=== PATIENT | female | born 1935 | race Caucasian/White ===

== ENCOUNTER → 2023-04-26 13:12 | Outpatient (BNVA) | payer MEDICARE, OTHER, SELFPAY | PROVIDERS: Visit Provider Podiatrist Foot & Ankle Surgery | DX: L60.3 Nail dystrophy (principal); N18.9 Chronic kidney disease, unspecified; G62.9 Polyneuropathy, unspecified; E11.42 Type 2 diabetes mellitus with diabetic polyneuropathy | CPT/HCPCS: 11721; 99203 ==

== ENCOUNTER → 2023-06-03 13:47 | Outpatient (BNVA) | payer MEDICARE, OTHER, SELFPAY | PROVIDERS: Referring Provider Nurse Practitioner Family; Visit Provider Internal Medicine Cardiovascular Disease | DX: E11.22 Type 2 diabetes mellitus with diabetic chronic kidney disease (principal); N18.9 Chronic kidney disease, unspecified; J44.9 Chronic obstructive pulmonary disease, unspecified; G47.30 Sleep apnea, unspecified; F09 Unspecified mental disorder due to known physiological condition | CPT/HCPCS: 99204 ==

== ENCOUNTER → 2023-06-28 13:11 | Outpatient (BNVA) | payer SELFPAY | PROVIDERS: Visit Provider Podiatrist Foot & Ankle Surgery | DX: E11.42 Type 2 diabetes mellitus with diabetic polyneuropathy; M19.072 Primary osteoarthritis, left ankle and foot; L60.3 Nail dystrophy; E11.29 Type 2 diabetes mellitus with other diabetic kidney complication; N18.9 Chronic kidney disease, unspecified; G62.9 Polyneuropathy, unspecified; M10.9 Gout, unspecified | CPT/HCPCS: 73630 ==

== ENCOUNTER → 2023-08-02 14:11 | Outpatient (BNVA) | payer MEDICARE, OTHER, SELFPAY | PROVIDERS: PCP Family Medicine; Visit Provider Podiatrist Foot & Ankle Surgery | DX: L60.3 Nail dystrophy (principal); N18.9 Chronic kidney disease, unspecified; G62.9 Polyneuropathy, unspecified; M10.9 Gout, unspecified; E11.42 Type 2 diabetes mellitus with diabetic polyneuropathy; M19.92 Post-traumatic osteoarthritis, unspecified site | CPT/HCPCS: 11721 ==

== ENCOUNTER 2023-11-25 01:29 | Emergency (ER) | payer MEDICARE, OTHER, SELFPAY ==
[2023-11-25 01:31] VITALS: BP 144/55; PULSE 81; RESP 18; TEMP 36.7; O2SAT 85; BMI 39.6
--- NOTE | 2023-11-25 01:35 | CTR_ITS ---
PROCEDURE INFORMATION: Exam: CT Head Without Contrast Exam date and time: 11/25/2023 1:52 AM Age: 88 years old Clinical indication: Stroke-like symptoms; Altered mental status/memory loss and speech disturbance; Additional info: Possible stroke TECHNIQUE: Imaging protocol: Computed tomography of the head without contrast. Radiation optimization: All CT scans at this facility use at least one of these dose optimization techniques: automated exposure control; mA and/or kV adjustment per patient size (includes targeted exams where dose is matched to clinical indication); or iterative reconstruction. Other technique: STROKE PROTOCOL was implemented. COMPARISON: No relevant prior studies available. RADIATION DOSE METRICS: Total DLP (mGy-cm): 2347.78 FINDINGS: Brain: No acute intracranial hemorrhage or mass effect. There is decreased attenuation in the periventricular white matter, likely from microvascular disease. There are several old lacunar infarcts in the right basal ganglia region. No definite acute infarct by CT. MRI would be more sensitive/specific for detection, as clinically directed. Cerebral ventricles: Ventricle size is normal for age. Paranasal sinuses: Included paranasal sinuses are essentially clear. Mastoid air cells: No significant acute finding. Bones: No definite acute skull fracture. Soft tissues: No significant acute finding. Vasculature: Vascular calcifications in the internal carotid and vertebral basilar systems. CT/CT head wo con* [id number] IMPRESSION: 1. No acute intracranial hemorrhage or mass effect. 2. Changes of microvascular disease, and several old lacunar infarcts. 3. No definite acute infarct by CT, see above. 4. Other findings discussed above. ASSESSMENT: ASPECTS ([place] Stroke Program Early CT Score) is 10.
--- NOTE | 2023-11-25 01:40 | ECG_ITS ---
[facility] Test Date: 2023-11-25 Pat Name: Nakia Fung Department: Room: Gender: Female [employer]or: : 1935 Requested By: Renetta Archer Order Number: [id number] Rainer MD: MARGARITA LEGGETT Measurements Intervals [place] Rate: 64 P: 0 HI: 0 QRS: -7 QRSD: 77 T: 16 QT: 400 QTc: 415 Interpretive Statements Sinus Rythm LOW QRS VOLTAGE IN PRECORDIAL LEADS [QRS DEFLECTION < 1.0 mV IN CHEST LEADS] POSSIBLE ANTERIOR MYOCARDIAL INFARCTION , PROBABLY OLD [30 ms Q WAVE IN V3/V4, OR R < 0.2 mV IN V4] ABNORMAL RHYTHM ECG No previous ECG available for comparison Electronically Signed On 11-27-2023 18:23:11 CDT by MARGARITA LEGGETT [email or web address]
[2023-11-25 01:44] VITALS: BP 144/55; PULSE 73; RESP 16; O2SAT 93
[2023-11-25 01:46] LABS: Basophils % 0.1 %; Eosinophils # 0.6 10^3/uL (0.0-0.8); Eosinophils % 6.9 %; Lymphocytes # 2.2 10^3/uL (0.8-4.8); Mean Corpuscular HGB Conc 30.8 g/dL (30-55); Mean Corpuscular Hemoglobin 27.8 pg (27-33); Mean Corpuscular Volume 90.5 fl (85-98); Monocytes # 0.8 10^3/uL (0.2-0.9); Monocytes % 8.8 %; Neutrophils # 5.11 10^3/uL (1.8-7.7); Nucleated Red Blood Cells % 0 %; Platelet Count 172 10^3/cmm (157-399); Red Blood Count 4.31 10^6/uL (3.85-5.65); Red Cell Distribution Width 13.1 % (12.1-15.1); White Blood Count 8.67 10^3/uL (3.29-11.43)
--- NOTE | 2023-11-25 01:59 | ED_ITS ---
HPI - Neuro Symptoms/Deficit 2 General: Chief Complaint: Neuro Symptoms/Deficit Stated Complaint: ams, TIA EPISODE Time Seen by Provider: 11/25/23 01:35 History of Present Illness: 88-year-old female with a history of dem entia who presents emergency room by air ambulance after having neurologic episodes this evening. Apparently she took a CBD gummy. She has not taken these many times before. She had several episodes where she would just go completely limp and her face would melt . The symptoms have resolved and she is back to her normal self. Blood pressure is normal. Heart rate is normal. Related Data Home Medications Medication Instructions Recorded Confirmed quetiapine 25 mg tablet 25 mg PO DAILY 04/26/23 08/02/23 albuterol sulfate 90 mcg/actuation 2 puff inhalation Q4H PRN 06/03/23 08/02/23 aerosol inhaler aspirin 81 mg tablet,delayed 81 mg PO DAILY 06/03/23 08/02/23 release (Ecotrin Low Strength) atorvastatin 20 mg tablet 20 mg PO DAILY 06/03/23 08/02/23 clopidogrel 75 mg tablet (Plavix) 75 mg PO DAILY 06/03/23 08/02/23 docusate sodium 100 mg capsule 100 mg PO BID PRN 06/03/23 08/02/23 (Colace) donepezil 10 mg tablet (Aricept) 10 mg PO DAILY 06/03/23 08/02/23 furosemide 20 mg tablet (Lasix) 20 mg PO DAILY 06/03/23 08/02/23 hydroxyzine HCl 25 mg tablet 25 mg PO BID PRN 06/03/23 08/02/23 levothyroxine 112 mcg capsule 112 mcg PO DAILY 06/03/23 08/02/23 melatonin 3 mg tablet 3 mg PO DAILY PRN 06/03/23 08/02/23 memantine 10 mg tablet 10 mg PO BID 06/03/23 08/02/23 nystatin 100,000 unit/gram topical 1 applic topical BID 06/03/23 08/02/23 powder polyethylene glycol 3350 17 gram 17 g PO DAILY 06/03/23 08/02/23 oral powder packet (Miralax) propranolol 10 mg tablet 10 mg PO BID 06/03/23 08/02/23 spironolactone 25 mg tablet 12.5 mg PO DAILY 06/03/23 08/02/23 umeclidinium 62.5 mcg/actuation 1 inh inhalation DAILY 06/03/23 08/02/23 blister powder for inhalation (Incruse Ellipta) Previous Rx's Medication Instructions Recorded L foot AFO #1 06/28/23 diabetic shoes with 3 custom #1 06/28/23 molded inserts wheelchair with extra large wheels #1 ea 07/19/23 diabeic shoes with 3 inserts #1 07/20/23 wheelchair w/extra large wheels #1 ea 08/05/23 for in home use Allergies Allergy/AdvReac Type Severity Reaction Status Date / Time tomato Allergy Unknown Unknown Verified 11/25/23 01:44 ceftriaxone Allergy ALGY-Hives Verified 11/25/23 01:44 Review of Systems 2 Narrative: Constitutional symptoms: Negative except as documented in HPI. Skin symptoms: Negative except as documented in HPI. Eye symptoms: Negative except as documented in HPI. ENMT symptoms: Negative except as documented in HPI. Respiratory symptoms: Negative except as documented in HPI. Cardiovascular symptoms: Negative except as documented in HPI. Gastrointestinal symptoms: Negative except as documented in HPI. Genitourinary symptoms: Negative except as documented in HPI. Musculoskeletal symptoms: Negative except as documented in HPI. Neurologic symptoms: Negative except as documented in HPI. Psychiatric symptoms: Negative except as documented in HPI. Endocrine symptoms: Negative except as documented in HPI. PFSH ED 2 PFSH: Medical History Cognitive dysfunction Sleep apnea COPD (chronic obstructive pulmonary disease) Physical Exam 2 Narrative: EXAM NARRATIVE: General: Alert, no acute distress. Skin: Warm, dry. Head: Normocephalic, atraumatic. Neck: Supple, trachea midline. Eye: Extraocular movements are intact. Ears, nose, mouth and throat: mucosa moist. Cardiovascular: Regular, Normal peripheral perfusion. Respiratory: Lungs are clear to auscultation, respirations are non-labored, breath sounds are equal, Symmetrical chest wall expansion. Gastrointestinal: Soft, Nontender, Non distended Musculoskeletal: Normal ROM, no deformity. Neurological: Alert and oriented, No focal neurological deficit observed. Psychiatric: Cooperative, appropriate mood & affect. Course 2 Vital Signs: Vital signs: Vital Signs Temperature 98.1 F 11/25/23 01:31 Pulse Rate 69 11/25/23 02:14 Respiratory Rate 15 11/25/23 02:14 Blood Pressure 131/75 11/25/23 02:14 Pulse Oximetry 96 11/25/23 02:14 Oxygen Delivery Me thod Nasal Cannula 11/25/23 02:14 Oxygen Flow Rate 4 11/25/23 01:44 MDM - Neuro Symptoms/Deficit Medical Decision Making Medical decision making: Differential diagnosis for patient with focal neurologic deficit(s) includes but not limited to and based on the above HPI, review of systems and physical exam: ischemic stroke, hemorrhagic stroke and embolic stroke secondary to atrial fibrillation), TIA, Barron's palsey, metabolic encephalopathy with previous stroke. Orders placed to evaluate differential diagnosis based on the above differential, HPI and physical exam Lab Review: Laboratory results were reviewed and interpreted by myself the emergency room physician. No leukocytosis. No anemia. BUN and creatinine are 49 and 1.3. I do not have any previous labs to compare. CT of the head without contrast: No hemorrhage or mass effect. She has senescent changes. No signs of acute infarct. This was reviewed and interpreted by myself the emergency room physician. I also reviewed the radiology report. Urinalysis is negative for infection. I reviewed the patient's medical record. Reexamination: Patient remained stable. No increased work of breathing. No altered mental status. No focal motor deficits. Assessment and plan: Possible medication reaction. - Discharged home - Discussed findings and plan with patient. Answered any questions. - All laboratory values were reviewed and interpreted personally by myself, the ER physician - All imaging was reviewed and interpreted personally by myself, the ER physician. - Evaluation and treatment of this problem were appropriate in the emergency setting Lab Data 11/25/23 01:40 11/25/23 01:[address] 11/25/23 01:35 IMPRESSION: 1. No acute intracranial hemorrhage or mass effect. 2. Changes of microvascular disease, and several old lacunar infarcts. 3. No definite acute infarct by CT, see above. 4. Other findings discussed above. ASSESSMENT: ASPECTS ([place] Stroke Program Early CT Score) is 10. Laboratory Results WBC 8.67 10^3/uL (3.29-11.43) 11/25/23 01:40 RBC 4.31 10^6/uL (3.85-5.65) 11/25/23 01:40 Hgb 12.00 g/dL (11.27-16.99) 11/25/23 01:40 Hct 39.0 % (36-47) 11/25/23 01:40 MCV 90.5 fl (85-98) 11/25/23 01:40 MCH 27.8 pg (27-33) 11/25/23 01:40 MCHC 30.8 g/dL (30-55) 11/25/23 01:40 RDW 13.1 % (12.1-15.1) 11/25/23 01:40 Plt Count 172 10^3/cmm (157-399) 11/25/23 01:40 MPV 10.0 fL (7.4-10.4) 11/25/23 01:40 Neut % (Auto) 59.0 % 11/25/23 01:40 Lymph % (Auto) 25.0 % 11/25/23 01:40 [facility] % (Auto) 8.8 % 11/25/23 01:40 Eos % (Auto) 6.9 % 11/25/23 01:40 Baso % (Auto) 0.1 % 11/25/23 01:40 Neut # (Auto) 5.11 10^3/uL (1.8-7.7) 11/25/23 01:40 Lymph # (Auto) 2.2 10^3/uL (0.8-4.8) 11/25/23 01:40 [facility] # (Auto) 0.8 10^3/uL (0.2-0.9) 11/25/23 01:40 Eos # (Auto) 0.6 10^3/uL (0.0-0.8) 11/25/23 01:40 Baso # (Auto) 0.0 10^3/uL (0.0-0.1) 11/25/23 01:40 Nucleated RBC % (auto) 0 % 11/25/23 01:40 Nucleated RBCs # 0.0 /100WBC 11/25/23 01:40 Sodium 140 mmol/L (136-145) 11/25/23 01:40 Potassium 4.6 mmol/L (3.5-5.1) 11/25/23 01:40 Chloride 107 mmol/L (98-107) 11/25/23 01:40 Carbon Dioxide 25 mmol/L (22-29) 11/25/23 01:40 Anion Gap 12.6 (5-19) 11/25/23 01:40 BUN 49 mg/dL (8-23) H 11/25/23 01:40 Creatinine 1.3 mg/dL (0.5-0.9) H 11/25/23 01:40 GFR Calculation Not Reportable 11/25/23 01:40 Glucose 115 mg/dL (65-115) 11/25/23 01:40 Calculated Osmolality 304 mOsm/kg (285-295) H 11/25/23 01:40 Calcium 8.1 mg/dL (8.5-10.5) L 11/25/23 01:40 Total Bilirubin 0.2 mg/dL (0.15-1.2) 11/25/23 01:40 AST 14 U/L (0-32) 11/25/23 01:40 ALT 8 U/L (0-33) 11/25/23 01:40 Alkaline Phosphatase 128 U/L (35-105) H 11/25/23 01:40 Total Protein 6.0 g/dL (6.6-8.7) L 11/25/23 01:40 Albumin 3.6 g/dL (3.5-5.2) 11/25/23 01:40 Globulin 2.4 g/dL (1.3-4.6) 11/25/23 01:40 Urine Color Yellow (Yellow) 11/25/23 02:08 Urine Appearance Clear (CLEAR) 11/25/23 02:08 Urine pH 5.0 (5-7) 11/25/23 02:08 Ur Specific [place] 1.019 (1.005-1.030) 11/25/23 02:08 Urine Protein Negative (Negative) 11/25/23 02:08 Urine Glucose (UA) Negative (Normal) 11/25/23 02:08 Urine Ketones Trace (Negative) 11/25/23 02:08 Urine Blood Negative (Negative) 11/25/23 02:08 Urine Nitrate Negative (Negative) 11/25/23 02:08 Urine Bilirubin Negative (Negative) 11/25/23 02:08 Urine Urobilinogen 1.0 mg/dL (Negative) 11/25/23 02:08 Ur Leukocyte Esterase Negative (Negative) 11/25/23 02:08 Amorphous Sediment Not Reportable 11/25/23 02:08 All radiology interpretation(s) finalized by discharge Discharge Plan Discharge Patient Disposition: Home Clinical Impression: Encephalopathy, Medication reaction Condition: Stable Prescriptions: No Action levothyroxine 112 mcg capsule 112 mcg PO DAILY albuterol sulfate 90 mcg/actuation HFA aerosol inhaler 2 puff inhalation Q4H PRN aspirin [Ecotrin Low Strength] 81 mg tablet,delayed release (DR/EC) 81 mg PO DAILY atorvastatin 20 mg tablet 20 mg PO DAILY clopidogrel [Plavix] 75 mg tablet 75 mg PO DAILY docusate sodium [Colace] 100 mg capsule 100 mg PO BID PRN donepezil [Aricept] 10 mg tablet 10 mg PO DAILY furosemide [Lasix] 20 mg tablet 20 mg PO DAILY hydroxyzine HCl 25 mg tablet 25 mg PO BID PRN melatonin 3 mg tablet 3 mg PO DAILY PRN memantine 10 mg tablet 10 mg PO BID nystatin 100,000 unit/gram powder 1 applic topical BID polyethylene glycol 3350 [Miralax] 17 gram powder in packet 17 g PO DAILY propranolol 10 mg tablet 10 mg PO BID Incruse Ellipta 62.5 mcg/actuation blister with device 1 inh inhalation DAILY spironolactone 25 mg tablet 12.5 mg PO DAILY (DME) diabetic shoes with 3 custom molded inserts See Rx Instructions .Route .MEDSUPPLY Qty: 1 0RF Rx Instructions: As directed to the shoe guys (DME) L foot AFO See Rx Instructions .Route .MEDSUPPLY Qty: 1 0RF Rx Instructions: As directed to the shoe guys quetiapine 25 mg tablet 25 mg PO DAILY (DME) wheelchair with extra large wheels See Rx Instructions .Route .MEDSUPPLY Qty: 1 0RF Rx Instructions: As directed to HOME (DME) diabeic shoes with 3 inserts See Rx Instructions .Route .MEDSUPPLY Qty: 1 0RF Rx Instructions: As directed HOME (DME) wheelchair w/extra large wheels for in home use See Rx Instructions .Route .MEDSUPPLY Qty: 1 0RF Rx Instructions: As directed to HOME / duration of need 90 days. Anything beyond that needs to be approved through primary care. Discharge Orders: Discharge ED (Routine); Ordered 11/25/23 Ordered By: Renetta Kramer Referrals: Ignacio Robles [Primary Care Provider] - Discharge Diet: Usual diet Discharge Activity: Increase activity as tolerated Patient Instructions: Opioid Safety, Pain Management Activity Restrictions/Additional Instructions: Please take a full-strength aspirin daily and discuss this event with your primary care provider. Symptoms were not typical for any sort of stroke but TIA is not out of the question. Thank you for choosing [facility] for your healthcare needs today. Please realize this is an emergency room and that we are providing you with a medical screening exam and this may not be complete and all inclusive of all the testing and or work up that you may need to determine your ailment or severity of your illness. You have been screened and evaluated and felt safe for discharge. Health conditions do change or evolve sometimes and as such it is important that you follow up with your Primary Doctor to be re checked, 3-5 days is a general good time frame for follow up. You are always welcome to return to the ED for re assessment if your symptoms are worsening or you have new concerns Coding Level of Care Code ED Golf Instructor for Stefanie Clemens
[2023-11-25 02:06] LABS: Alanine Aminotransferase 8 U/L (0-33); Albumin Level 3.6 g/dL (3.5-5.2); Alkaline Phosphatase 128 U/L (35-105); Aspartate Amino Transferase 14 U/L (0-32); Blood Urea Nitrogen 49 mg/dL (8-23); Calcium 8.1 mg/dL (8.5-10.5); Carbon Dioxide 25 mmol/L (22-29); Chloride 107 mmol/L (98-107); Creatinine Clr Calc Pharmacy 31.4492; Globulin 2.4 g/dL (1.3-4.6); Glucose 115 mg/dL (65-115); Osmolality Calculated 304 mOsm/kg (285-295); Sodium 140 mmol/L (136-145); Total Bilirubin 0.2 mg/dL (0.15-1.2)
[2023-11-25 02:14] VITALS: BP 131/75; PULSE 69; RESP 15; O2SAT 96
[2023-11-25 02:21] LABS: Anion Gap 12.6 (5-19); Potassium 4.6 mmol/L (3.5-5.1)
[2023-11-25 02:25] LABS: Bilirubin Urine Negative (Negative); Blood Urine Negative (Negative); Glucose Urine UA Negative (Normal); Ketones Urine Trace (Negative); Leukocyte Esterase Urine Negative (Negative); Nitrate Urine Negative (Negative); Protein Urine Negative (Negative); Specific Gravity, Urine 1.019 (1.005-1.030); Urine Appearance Clear (CLEAR); Urine Color Yellow (Yellow)
[2023-11-25 02:30] LABS: Bacteria Urine None Seen /hpf; Hyaline Casts Urine 18.18 /lpf; RBC Urine 0-2 /hpf (0-2); Squamous Epithelial Cell Urine 0-5 /hpf (0-5); WBC Urine 0-5 /hpf (0-5)
[2023-11-25 02:43] LABS: Partial Thromboplastin Time 26.9 SECONDS (23.9-36.7)
[2023-11-25 02:46] LABS: Add Urine Culture? No
[2023-11-25 03:34] VITALS: BP 158/90; PULSE 66; RESP 14; O2SAT 97
== END 2023-11-25 03:10 | disposition home or self-care (01) ==
PROVIDERS: Emergency Provider Emergency Medicine; PCP Family Medicine
DX: G92.8 Other toxic encephalopathy (principal); T40.715A Adverse effect of cannabis, initial encounter; J44.9 Chronic obstructive pulmonary disease, unspecified; Z79.02 Long term (current) use of antithrombotics/antiplatelets; Z79.82 Long term (current) use of aspirin
CPT/HCPCS: 70450; 80053; 81001; 85025; 85610; 85730; 93005; 99284

== ENCOUNTER 2023-11-27 13:32 | Emergency (ER) | payer MEDICARE, OTHER, SELFPAY ==
[2023-11-27] VITALS (8 sets, daily range): BP systolic 122–177; BP diastolic 43–91; PULSE 58–71; RESP 16–18; TEMP 36.8; O2SAT 95–100
--- NOTE | 2023-11-27 13:44 | XRR_ITS ---
PROCEDURE INFORMATION: Exam: XR Chest Exam date and time: 11/27/2023 2:04 PM Age: 88 years old Clinical indication: Patient HX: Weakness; Syncopal episodes; HX stroke x 15yr ago TECHNIQUE: Imaging protocol: Radiologic exam of the chest. Views: 1 view. COMPARISON: No relevant prior studies available. FINDINGS: Lungs: Bibasilar pulmonary infiltrates, right greater than left. Pleural spaces: Unremarkable. No pleural effusion. No pneumothorax. Heart/Mediastinum: See Vasculature finding. Vasculature: Mild cardiomegaly and uncoiling of the thoracic aorta. Bones/joints: Degenerative changes of the shoulders, left greater than right. XR/XR chest 1V portable [id number] IMPRESSION: Bilateral lower lobe infiltrates.
--- NOTE | 2023-11-27 13:45 | USR_ITS ---
PROCEDURE INFORMATION: Exam: US Duplex Lower Extremity Veins, Bilateral Exam date and time: 11/27/2023 2:46 PM Age: 88 years old Clinical indication: Edema, localized; Lower extremity, bilateral; Additional info: Bilateral lower extremity pain and swelling. TECHNIQUE: Imaging protocol: Real-time duplex ultrasound of the bilateral extremities with 2-D fonseca scale, color Doppler flow and spectral waveform analysis including responses to compression and other maneuvers (when performed) with image documentation. Complete exam focused on the lower extremity veins. COMPARISON: US CV ankle brachial index [id number] 06/23/2023 1:25 PM FINDINGS: Right deep veins: Unremarkable. The common femoral, femoral, proximal profunda femoral and popliteal veins are patent without thrombus. Normal Doppler waveforms. Normal compressibility and/or augmentation response. Left deep veins: Unremarkable. The common femoral, femoral, proximal profunda femoral and popliteal veins are patent without thrombus. Normal Doppler waveforms. Normal compressibility and/or augmentation response. Superficial veins: Greater saphenous veins at the saphenofemoral junctions are patent bilaterally without thrombus. Soft tissues: Unremarkable. US/[place] [id number] IMPRESSION: No evidence of deep vein thrombosis.
--- NOTE | 2023-11-27 13:45 | ED_ITS ---
HPI - Extremity Problem 2 General: Chief complaint: Extremity Problem,Nontraumatic Stated complaint: swollen leg Time Seen by Provider: 11/27/23 13:42 History of Present Illness: 88-year-old female who presents emergenc y room with pain and swelling in her left leg. Her primary told her to come here to rule out DVT. No obvious redness. Some mild edema. No chest pain. No shortness of breath. No altered mental status. Related Data Home Medications Medication Instructions Recorded Confirmed quetiapine 25 mg tablet 25 mg PO DAILY 04/26/23 08/02/23 albuterol sulfate 90 mcg/actuation 2 puff inhalation Q4H PRN 06/03/23 08/02/23 aerosol inhaler aspirin 81 mg tablet,delayed 81 mg PO DAILY 06/03/23 08/02/23 release (Ecotrin Low Strength) atorvastatin 20 mg tablet 20 mg PO DAILY 06/03/23 08/02/23 clopidogrel 75 mg tablet (Plavix) 75 mg PO DAILY 06/03/23 08/02/23 docusate sodium 100 mg capsule 100 mg PO BID PRN 06/03/23 08/02/23 (Colace) donepezil 10 mg tablet (Aricept) 10 mg PO DAILY 06/03/23 08/02/23 furosemide 20 mg tablet (Lasix) 20 mg PO DAILY 06/03/23 08/02/23 hydroxyzine HCl 25 mg tablet 25 mg PO BID PRN 06/03/23 08/02/23 levothyroxine 112 mcg capsule 112 mcg PO DAILY 06/03/23 08/02/23 melatonin 3 mg tablet 3 mg PO DAILY PRN 06/03/23 08/02/23 memantine 10 mg tablet 10 mg PO BID 06/03/23 08/02/23 nystatin 100,000 unit/gram topical 1 applic topical BID 06/03/23 08/02/23 powder polyethylene glycol 3350 17 gram 17 g PO DAILY 06/03/23 08/02/23 oral powder packet (Miralax) propranolol 10 mg tablet 10 mg PO BID 06/03/23 08/02/23 spironolactone 25 mg tablet 12.5 mg PO DAILY 06/03/23 08/02/23 umeclidinium 62.5 mcg/actuation 1 inh inhalation DAILY 06/03/23 08/02/23 blister powder for inhalation (Incruse Ellipta) Previous Rx's Medication Instructions Recorded L foot AFO #1 ea 06/28/23 diabetic shoes with 3 custom #1 ea 06/28/23 molded inserts wheelchair with extra large wheels #1 ea 07/19/23 diabeic shoes with 3 inserts #1 ea 07/20/23 wheelchair w/extra large wheels #1 ea 08/05/23 for in home use Allergies Allergy/AdvReac Type Severity Reaction Status Date / Time tomato Allergy Unknown Unknown Verified 11/25/23 01:44 ceftriaxone Allergy ALGY-Hives Verified 11/25/23 01:44 Review of Systems 2 Narrative: Constitutional symptoms: Negative except as documented in HPI. Skin symptoms: Negative except as documented in HPI. Eye symptoms: Negative except as documented in HPI. ENMT symptoms: Negative except as documented in HPI. Respiratory symptoms: Negative except as documented in HPI. Cardiovascular symptoms: Negative except as documented in HPI. Gastrointestinal symptoms: Negative except as documented in HPI. Genitourinary symptoms: Negative except as documented in HPI. Musculoskeletal symptoms: Negative except as documented in HPI. Neurologic symptoms: Negative except as documented in HPI. Psychiatric symptoms: Negative except as documented in HPI. Endocrine symptoms: Negative except as documented in HPI. PFSH ED 2 PFSH: Medical History Cognitive dysfunction Sleep apnea COPD (chronic obstructive pulmonary disease) Physical Exam 2 Narrative: EXAM NARRATIVE: General: Alert, no acute distress. Skin: Warm, dry. Head: Normocephalic, atraumatic. Neck: Supple, trachea midline. Eye: Extraocular movements are intact. Ears, nose, mouth and throat: mucosa moist. Cardiovascular: Regular, Normal peripheral perfusion. Respiratory: Lungs are clear to auscultation, respirations are non-labored, breath sounds are equal, Symmetrical chest wall expansion. Gastrointestinal: Soft, Nontender, Non distended Musculoskeletal: Normal ROM, no deformity. Neurological: Alert and oriented, No focal neurological deficit observed. Psychiatric: Cooperative, appropriate mood & affect. Course 2 Vital Signs: Vital signs: Vital Signs Temperature 98.3 F 11/27/23 13:37 Pulse Rate 64 11/27/23 18:00 Respiratory Rate 18 11/27/23 18:00 Blood Pressure 128/59 11/27/23 18:00 Pulse Oximetry 95 11/27/23 18:00 Oxygen Delivery Me thod Room Air 11/27/23 18:00 Oxygen Flow Rate 3 11/27/23 13:37 MDM - Extremity (Nontraumatic) Medical Decision Making Ultrasound of the lower extremity shows no DVT. This was reviewed and interpreted by myself the emergency room physician. I also reviewed the radiology report. Chest x-ray was read as bilateral lower lobe infiltrates so a CT was ordered. M this was reviewed and interpreted by myself the emergency room physician. I also reviewed the radiology report. CT of the chest without contrast shows bilateral atelectasis. No other acute process. This was reviewed and interpreted by myself the emergency room physician. I also reviewed the radiology report. Lab review: This was reviewed and interpreted by myself emergency room physician. No leukocytosis. No anemia. BUN and creatinine are stable at 46 and 1.2. Actually slightly improved from previous. Assessment and plan: Leg pain Leg swelling ?40 mg IV Lasix here in the emergency room. - Discharged home - Discussed findings and plan with patient. Answered any questions. - All laboratory values were reviewed and interpreted personally by myself, the ER physician - All imaging was reviewed and interpreted personally by myself, the ER physician. - Evaluation and treatment of this problem were appropriate in the emergency setting Lab Data 11/27/23 14:08 11/27/23 14:08 Radiology Impressions Chest X-Ray 11/27/23 13:44 IMPRESSION: Bilateral lower lobe infiltrates. Venous Duplex 11/27/23 13:45 IMPRESSION: No evidence of deep vein thrombosis. Chest CT 11/27/23 15:53 IMPRESSION: 1. Dewc-cc-ddqjvuvn, vfrt-lrnjgjq-wgvi-right basilar atelectasis. No arcenio consolidation identified. 2. Other nonemergent findings above. Laboratory Results WBC 8.19 10^3/uL (3.29-11.43) 11/27/23 14:08 RBC 4.53 10^6/uL (3.85-5.65) 11/27/23 14:08 Hgb 12.60 g/dL (11.27-16.99) 11/27/23 14:08 Hct 41.6 % (36-47) 11/27/23 14:08 MCV 91.8 fl (85-98) 11/27/23 14:08 MCH 27.8 pg (27-33) 11/27/23 14:08 MCHC 30.3 g/dL (30-55) 11/27/23 14:08 RDW 13.0 % (12.1-15.1) 11/27/23 14:08 Plt Count 176 10^3/cmm (157-399) 11/27/23 14:08 MPV 10.2 fL (7.4-10.4) 11/27/23 14:08 Neut % (Auto) 64.7 % 11/27/23 14:08 Lymph % (Auto) 20.3 % 11/27/23 14:08 Towns % (Auto) 8.7 % 11/27/23 14:08 Eos % (Auto) 5.9 % 11/27/23 14:08 Baso % (Auto) 0.0 % 11/27/23 14:08 Neut # (Auto) 5.31 10^3/uL (1.8-7.7) 11/27/23 14:08 Lymph # (Auto) 1.7 10^3/uL (0.8-4.8) 11/27/23 14:08 Towns # (Auto) 0.7 10^3/uL (0.2-0.9) 11/27/23 14:08 Eos # (Auto) 0.5 10^3/uL (0.0-0.8) 11/27/23 14:08 Baso # (Auto) 0.0 10^3/uL (0.0-0.1) 11/27/23 14:08 Nucleated RBC % (auto) 0 % 11/27/23 14:08 Nucleated RBCs # 0.0 /100WBC 11/27/23 14:08 PT 14.00 SECONDS (12.1-14.9) 11/27/23 14:25 INR 1.04 (0.8-1.2) 11/27/23 14:25 APTT 32.4 SECONDS (23.9-36.7) 11/27/23 14:25 Sodium 137 mmol/L (136-145) 11/27/23 14:08 Potassium 5.2 mmol/L (3.5-5.1) H 11/27/23 14:08 Chloride 103 mmol/L (98-107) 11/27/23 14:08 Carbon Dioxide 26 mmol/L (22-29) 11/27/23 14:08 Anion Gap 13.2 (5-19) 11/27/23 14:08 BUN 46 mg/dL (8-23) H 11/27/23 14:08 Creatinine 1.2 mg/dL (0.5-0.9) H 11/27/23 14:08 GFR Calculation Not Reportable 11/27/23 14:08 Glucose 91 mg/dL (65-115) 11/27/23 14:08 Calculated Osmolality 295 mOsm/kg (285-295) 11/27/23 14:08 Calcium 8.6 mg/dL (8.5-10.5) 11/27/23 14:08 Total Bilirubin 0.3 mg/dL (0.15-1.2) 11/27/23 14:08 AST 15 U/L (0-32) 11/27/23 14:08 ALT 10 U/L (0-33) 11/27/23 14:08 Alkaline Phosphatase 117 U/L (35-105) H 11/27/23 14:08 C-Reactive Protein 33.6 mg/L (0.0-4.9) H 11/27/23 14:08 NT-Pro-B Natriuret Pep 992 pg/mL (0-450) H 11/27/23 14:08 Total Protein 6.6 g/dL (6.6-8.7) 11/27/23 14:08 Albumin 3.6 g/dL (3.5-5.2) 11/27/23 14:08 Globulin 3.0 g/dL (1.3-4.6) 11/27/23 14:08 TSH 0.24 uIU/mL (0.27-4.20) L 11/27/23 14:08 Free T4 1.21 ng/dL (0.82-1.77) 11/27/23 14:08 All radiology interpretation(s) finalized by discharge Discharge Plan Discharge Patient Disposition: Home Clinical Impression: Acute leg pain, Edema Condition: Stable Prescriptions: No Action levothyroxine 112 mcg capsule 112 mcg PO DAILY albuterol sulfate 90 mcg/actuation HFA aerosol inhaler 2 puff inhalation Q4H PRN aspirin [Ecotrin Low Strength] 81 mg tablet,delayed release (DR/EC) 81 mg PO DAILY atorvastatin 20 mg tablet 20 mg PO DAILY clopidogrel [Plavix] 75 mg tablet 75 mg PO DAILY docusate sodium [Colace] 100 mg capsule 100 mg PO BID PRN donepezil [Aricept] 10 mg tablet 10 mg PO DAILY furosemide [Lasix] 20 mg tablet 20 mg PO DAILY hydroxyzine HCl 25 mg tablet 25 mg PO BID PRN melatonin 3 mg tablet 3 mg PO DAILY PRN memantine 10 mg tablet 10 mg PO BID nystatin 100,000 unit/gram powder 1 applic topical BID polyethylene glycol 3350 [Miralax] 17 gram powder in packet 17 g PO DAILY propranolol 10 mg tablet 10 mg PO BID Incruse Ellipta 62.5 mcg/actuation blister with device 1 inh inhalation DAILY spironolactone 25 mg tablet 12.5 mg PO DAILY (DME) diabetic shoes with 3 custom molded inserts See Rx Instructions .Route .MEDSUPPLY Qty: 1 0RF Rx Instructions: As directed to the shoe guys (DME) L foot AFO See Rx Instructions .Route .MEDSUPPLY Qty: 1 0RF Rx Instructions: As directed to the shoe guys quetiapine 25 mg tablet 25 mg PO DAILY (DME) wheelchair with extra large wheels See Rx Instructions .Route .MEDSUPPLY Qty: 1 0RF Rx Instructions: As directed to HOME (DME) diabeic shoes with 3 inserts See Rx Instructions .Route .MEDSUPPLY Qty: 1 0RF Rx Instructions: As directed HOME (DME) wheelchair w/extra large wheels for in home use See Rx Instructions .Route .MEDSUPPLY Qty: 1 0RF Rx Instructions: As directed to HOME / duration of need 90 days. Anything beyond that needs to be approved through primary care. Discharge Orders: Discharge ED (Routine); Ordered 11/27/23 Ordered By: Renetta Kramer Referrals: Ignacio Robles [Primary Care Provider] - Discharge Diet: Usual diet Discharge Activity: Increase activity as tolerated Patient Instructions: Leg Pain (ED) Activity Restrictions/Additional Instructions: Thank you for choosing [facility] for your healthcare needs today. Please realize this is an emergency room and that we are providing you with a medical screening exam and this may not be complete and all inclusive of all the testing and or work up that you may need to determine your ailment or severity of your illness. You have been screened and evaluated and felt safe for discharge. Health conditions do change or evolve sometimes and as such it is important that you follow up with your Primary Doctor to be re checked, 3-5 days is a general good time frame for follow up. You are always welcome to return to the ED for re assessment if your symptoms are worsening or you have new concerns Coding Level of Care Code ED [employer] for Stefanie Clemens
[2023-11-27 14:14] LABS: Eosinophils # 0.5 10^3/uL (0.0-0.8); Eosinophils % 5.9 %; Hematocrit 41.6 % (36-47); Lymphocytes # 1.7 10^3/uL (0.8-4.8); Lymphocytes % 20.3 %; Mean Corpuscular HGB Conc 30.3 g/dL (30-55); Mean Corpuscular Hemoglobin 27.8 pg (27-33); Mean Corpuscular Volume 91.8 fl (85-98); Mean Platelet Volume 10.2 fL (7.4-10.4); Monocytes # 0.7 10^3/uL (0.2-0.9); Monocytes % 8.7 %; Neutrophils # 5.31 10^3/uL (1.8-7.7); Neutrophils % 64.7 %; Nucleated Red Blood Cells % 0 %; Platelet Count 176 10^3/cmm (157-399); Red Blood Count 4.53 10^6/uL (3.85-5.65); White Blood Count 8.19 10^3/uL (3.29-11.43)
[2023-11-27 14:43] LABS: Alanine Aminotransferase 10 U/L (0-33); Albumin Level 3.6 g/dL (3.5-5.2); Alkaline Phosphatase 117 U/L (35-105); Anion Gap 13.2 (5-19); Aspartate Amino Transferase 15 U/L (0-32); Blood Urea Nitrogen 46 mg/dL (8-23); C Reactive Protein 33.6 mg/L (0.0-4.9); Calcium 8.6 mg/dL (8.5-10.5); Carbon Dioxide 26 mmol/L (22-29); Chloride 103 mmol/L (98-107); Creatinine Clr Calc Pharmacy 30.6965; Glucose 91 mg/dL (65-115); Osmolality Calculated 295 mOsm/kg (285-295); Potassium 5.2 mmol/L (3.5-5.1); Sodium 137 mmol/L (136-145); Thyroid Stimulating Hormone 0.24 uIU/mL (0.27-4.20); Total Bilirubin 0.3 mg/dL (0.15-1.2); Total Protein 6.6 g/dL (6.6-8.7)
[2023-11-27 14:55] LABS: INR 1.04 (0.8-1.2); Partial Thromboplastin Time 32.4 SECONDS (23.9-36.7)
[2023-11-27 15:04] LABS: NT Pro B Type Natriuretic Pept 992 pg/mL (0-450)
[2023-11-27 15:28] LABS: Free T4 Free Thyroxine 1.21 ng/dL (0.82-1.77)
--- NOTE | 2023-11-27 15:53 | CTR_ITS ---
PROCEDURE INFORMATION: Exam: CT Chest Without Contrast; Diagnostic Exam date and time: 11/27/2023 4:24 PM Age: 88 years old Clinical indication: Abnormal findings; Abnormal radiologic exam of lung or chest; Additional info: Abnormal chest xray TECHNIQUE: Imaging protocol: Diagnostic computed tomography of the chest without contrast. Radiation optimization: All CT scans at this facility use at least one of these dose optimization techniques: automated exposure control; mA and/or kV adjustment per patient size (includes targeted exams where dose is matched to clinical indication); or iterative reconstruction. COMPARISON: CR (CHEST, ) 11/27/2023 2:04 PM RADIATION DOSE METRICS: Total DLP (mGy-cm): 611.9 FINDINGS: Lungs: Scattered areas of mild subpleural scarring. Zjde-eh-ptgzyftp scarring in the right middle lobe. Xqjr-yk-civiiooa, odzo-kuohnba-neky-right basilar atelectasis. No definitive arcenio consolidation. Breathing artifact limits evaluation of interstitial opacities. There are few scattered small pulmonary cysts. Pleural spaces: No pleural effusion or pneumothorax. Heart: Mild cardiomegaly. No pericardial effusion or pericardial thickening. Coronary arteries: Moderate coronary artery calcification. Lymph nodes: No enlarged lymph nodes are identified. Vasculature: Atherosclerotic calcifications of the aorta are present. No aneurysm is identified. Aberrant right subclavian artery incidentally noted. Bones/joints: Chronic bilateral rib fractures. Bones severe degenerative change of the left shoulder. Moderate degenerative change of the right shoulder. Soft tissues: The soft tissues are within normal limits. CT/CT chest wo con [id number] IMPRESSION: 1. Gkaw-dv-ezepoqvu, duox-vjtgnxo-nqcv-right basilar atelectasis. No arcenio consolidation identified. 2. Other nonemergent findings above.
--- NOTE | 2023-11-27 16:37 | PC.NURSE ---
this nurse assumed pt care at 1600 from Nerissa GONSALES.
[2023-11-27] MEDS: FUROsemide 40 mg Tablet 80 MG PO (19:51)
== END 2023-11-27 20:08 | disposition home or self-care (01) ==
PROVIDERS: Emergency Provider Emergency Medicine; PCP Family Medicine
DX: M79.605 Pain in left leg (principal); R60.0 Localized edema; J44.9 Chronic obstructive pulmonary disease, unspecified; Z79.02 Long term (current) use of antithrombotics/antiplatelets; Z79.82 Long term (current) use of aspirin
CPT/HCPCS: 36415; 71045; 71250; 80053; 83880; 84439; 84443; 85025; 85610; 85730; 86140; 93970; 99284

== ENCOUNTER 2024-04-29 13:12 | Emergency (ER) | payer MEDICARE, OTHER, SELFPAY ==
[2024-04-29 13:17] VITALS: BP 128/81; PULSE 76; RESP 18; TEMP 36.8; O2SAT 92; BMI 35.5
[2024-04-29 14:00] VITALS: BP 154/58
--- NOTE | 2024-04-29 14:04 | PC.PHAR ---
daughter is in room with mom, she gave me 4 medication bottles and states she prescribed several more, but she stopped giving her those and takes just those meds.
--- NOTE | 2024-04-29 14:09 | XRR_ITS ---
PROCEDURE INFORMATION: Exam: XR Chest Exam date and time: 04/29/2024 2:36 PM Age: 89 years old Clinical indication: Shortness of breath; AMS; Fluid retention; SOB TECHNIQUE: Imaging protocol: Radiologic exam of the chest. Views: 1 view. COMPARISON: CT chest con [id number] 11/27/2023 4:24 PM FINDINGS: Lungs: There are bilateral lower lobe infiltrates similar in appearance compared to the prior study. The upper lung de dios appear clear. Pleural spaces: There may be small bilateral pleural effusions. Heart/Mediastinum: Within normal limits. No cardiomegaly. Bones/joints: Intact. Other findings: Stable calcification projecting over the right paratracheal region likely represents a calcified lymph node. XR/XR chest 1V portable [id number] IMPRESSION: Bilateral lower lobe infiltrates. Similar findings were seen on the prior chest radiograph from November 27, 2023. Small bilateral pleural effusions may also be present.
--- NOTE | 2024-04-29 14:09 | CTR_ITS ---
PROCEDURE INFORMATION: Exam: CT Head Without Contrast Exam date and time: 04/29/2024 2:42 PM Age: 89 years old Clinical indication: Altered mental status/memory loss; Additional info: Altered mental status with h/o CVA TECHNIQUE: Imaging protocol: Computed tomography of the head without contrast. Radiation optimization: All CT scans at this facility use at least one of these dose optimization techniques: automated exposure control; mA and/or kV adjustment per patient size (includes targeted exams where dose is matched to clinical indication); or iterative reconstruction. COMPARISON: CT head wo con* [id number] 11/25/2023 1:52 AM RADIATION DOSE METRICS: Total DLP (mGy-cm): 1090.38 FINDINGS: Brain: There is enlargement of the ventricular system and cortical sulci compatible with diffuse cerebral atrophy, age-related.There is patchy hypoattenuation in the deep white matter most suggestive of chronic small vessel ischemic change in a patient this age. There are old small lacunar type infarcts in the basal ganglia bilaterally, similar in appearance compared to the prior study. No acute intracranial hemorrhage or significant mass effect is seen. Cerebral ventricles: Enlarged related to atrophy. No hydrocephalus. Paranasal sinuses: Visualized sinuses are clear. No air fluid levels. Mastoid air cells: Visualized mastoid air cells are well aerated. Bones: Intact. No acute fracture detected. Soft tissues: Unremarkable. Vasculature: There is atherosclerotic calcification of the internal carotid arteries at the skull base. CT/CT head wo con* [id number] IMPRESSION: 1. Age-related atrophy with patchy chronic small-vessel ischemic changes in the deep white matter and old small lacunar type infarcts in the basal ganglia bilaterally. 2. No acute intracranial hemorrhage or significant mass effect seen. 3. If there is persistent clinical concern, MRI may be helpful for further evaluation.
--- NOTE | 2024-04-29 14:09 | W.ED.AMS ---
HPI - Altered Mental Status General: Chief Complaint: Altered Mental Status Stated Complaint: drooping face, confusion Time Seen by Provider: 04/29/24 13:41 History of Present Illness: 89-year-old female presents to the emergency department chief complaint of increased confusion increased altered mental status patient has a longstanding history of dementia. Per the daughter patient has a history of previous TIA and stroke with minimal deficit she has not had increased confusion recently recent diagnosis of UTI 1 week ago. Patient has not had any recent falls or trauma, she presents to the ER with her daughter present for further assessment and management. Associated symptoms: Deny depression Related Data Home Medications ?Medication ?Instructions ?Recorded ?Confirmed quetiapine 25 mg tablet 25 mg PO DAILY 04/26/23 04/29/24 donepezil 10 mg tablet (Aricept) 10 mg PO DAILY 06/03/23 04/29/24 memantine 10 mg tablet 10 mg PO BID 06/03/23 04/29/24 levothyroxine 137 mcg tablet 137 mcg PO QAM 04/29/24 04/29/24 Allergies Allergy/AdvReac Type Severity Reaction Status Date / Time tomato Allergy Unknown Unknown Verified 11/25/23 01:44 ceftriaxone Allergy ALGY-Hives Verified 11/25/23 01:44 Review of Systems General: Reports: 10 or more systems reviewed and unremarkable except in HPI and below Const: Denies: fever(s), chills, fatigue or malaise Eyes: Denies: change in vision or blurry vision Card: Denies: chest pain or palpitations Resp: Denies: dyspnea or productive cough GI: Denies: abdominal pain, nausea or vomiting : Denies: flank pain Musc: Denies: extremity pain or extremity swelling Skin/Breast: Denies: rash or pruritus Neuro: Denies: headache(s) Psych: Denies: anxiety or depression Sameer/Lymph: Denies: easy bleeding All/Imm: Denies: urticaria, throat swelling or facial swelling PFSH ED PFSH: Medical History Cognitive dysfunction Sleep apnea COPD (chronic obstructive pulmonary disease) Course Vital Signs: Vital signs: Vital Signs Temperature 98.3 F 04/29/24 13:17 Pulse Rate 76 04/29/24 13:17 Respiratory Rate 18 04/29/24 13:17 Blood Pressure 139/68 04/29/24 14:30 Pulse Oximetry 93 04/29/24 16:00 Oxygen Delivery Me thod Nasal Cannula 04/29/24 13:17 Oxygen Flow Rate 3 04/29/24 13:17 MDM - Altered Mental Status Medical Decision Making Patient did require multiple sticks by nursing staff with multiple blown IVs patient lab work eventually was obtained that came back unremarkable. Patient did become progressively more aggressive wanting to be discharged home however the patient's legal guardian was unable to sign out AGAINST MEDICAL ADVICE the patient although remainder patient's lab work and imaging came back unremarkable patient stable for discharge home do not see any obvious acute stroke or any acute infection contributing to the patient's chronic dementia patient stable for discharge home advised further follow-up primary care in 3 to 5 days and was instructed to return the interim if any of her symptoms persist or worse. Lab Data 04/29/24 15:12 04/29/24 15:12 Radiology Impressions Chest X-Ray 04/29/24 14:09 IMPRESSION: Bilateral lower lobe infiltrates. Similar findings were seen on the prior chest radiograph from November 27, 2023. Small bilateral pleural effusions may also be present. Head CT 04/29/24 14:09 IMPRESSION: 1. Age-related atrophy with patchy chronic small-vessel ischemic changes in the deep white matter and old small lacunar type infarcts in the basal ganglia bilaterally. 2. No acute intracranial hemorrhage or significant mass effect seen. 3. If there is persistent clinical concern, MRI may be helpful for further evaluation. Laboratory Results WBC 7.91 10^3/uL (3.29-11.43) 04/29/24 15:12 Corrected WBC Cancelled 04/29/24 14:31 RBC 4.21 10^6/uL (3.85-5.65) 04/29/24 15:12 Hgb 11.90 g/dL (11.27-16.99) 04/29/24 15:12 Hct 38.9 % (36-47) 04/29/24 15:12 MCV 92.4 fl (85-98) 04/29/24 15:12 MCH 28.3 pg (27-33) 04/29/24 15:12 MCHC 30.6 g/dL (30-55) 04/29/24 15:12 RDW 13.1 % (12.1-15.1) 04/29/24 15:12 Plt Count 203 10^3/cmm (157-399) 04/29/24 15:12 MPV 10.0 fL (7.4-10.4) 04/29/24 15:12 Gran % Cancelled 04/29/24 14:31 Neut % (Auto) 61.7 % 04/29/24 15:12 Lymph % (Auto) 21.6 % 04/29/24 15:12 [place] % (Auto) 8.3 % 04/29/24 15:12 Eos % (Auto) 8.0 % 04/29/24 15:12 Baso % (Auto) 0.0 % 04/29/24 15:12 Neut # (Auto) 4.88 10^3/uL (1.8-7.7) 04/29/24 15:12 Lymph # (Auto) 1.7 10^3/uL (0.8-4.8) 04/29/24 15:12 [place] # (Auto) 0.7 10^3/uL (0.2-0.9) 04/29/24 15:12 Eos # (Auto) 0.6 10^3/uL (0.0-0.8) 04/29/24 15:12 Baso # (Auto) 0.0 10^3/uL (0.0-0.1) 04/29/24 15:12 Absolute Gran (auto) Cancelled 04/29/24 14:31 Nucleated RBC % (auto) 0 % 04/29/24 15:12 Nucleated RBCs # 0.0 /100WBC 04/29/24 15:12 PT 12.50 SECONDS (12.1-14.9) 04/29/24 15:12 INR 0.87 (0.8-1.2) 04/29/24 15:12 APTT 36.2 SECONDS (23.9-36.7) 04/29/24 15:12 Sodium 138 mmol/L (136-145) 04/29/24 15:12 Potassium 5.0 mmol/L (3.5-5.1) 04/29/24 15:12 Chloride 104 mmol/L (98-107) 04/29/24 15:12 Carbon Dioxide 26 mmol/L (22-29) 04/29/24 15:12 Anion Gap 13.0 (5-19) 04/29/24 15:12 BUN 38 mg/dL (8-23) H 04/29/24 15:12 Creatinine 1.2 mg/dL (0.5-0.9) H 04/29/24 15:12 GFR Calculation Not Reportable 04/29/24 15:12 Glucose 127 mg/dL (65-115) H 04/29/24 15:12 Calculated Osmolality 297 mOsm/kg (285-295) H 04/29/24 15:12 Calcium 8.6 mg/dL (8.5-10.5) 04/29/24 15:12 Total Bilirubin 0.2 mg/dL (0.15-1.2) 04/29/24 15:12 AST 12 U/L (0-32) 04/29/24 15:12 ALT 9 U/L (0-33) 04/29/24 15:12 Alkaline Phosphatase 108 U/L (35-105) H 04/29/24 15:12 C-Reactive Protein 3.0 mg/L (0.0-4.9) 04/29/24 15:12 NT-Pro-B Natriuret Pep 1270 pg/mL (0-450) H 04/29/24 15:12 Total Protein 6.2 g/dL (6.6-8.7) L 04/29/24 15:12 Albumin 3.6 g/dL (3.5-5.2) 04/29/24 15:12 Globulin 2.6 g/dL (1.3-4.6) 04/29/24 15:12 Urine Color Yellow (Yellow) 04/29/24 15:57 Urine Appearance Clear (CLEAR) 04/29/24 15:57 Urine pH 5.0 (5-7) 04/29/24 15:57 Ur Specific [place] 1.017 (1.005-1.030) 04/29/24 15:57 Urine Protein Negative (Negative) 04/29/24 15:57 Urine Glucose (UA) Negative (Normal) 04/29/24 15:57 Urine Ketones Negative (Negative) 04/29/24 15:57 Urine Blood Negative (Negative) 04/29/24 15:57 Urine Nitrate Negative (Negative) 04/29/24 15:57 Urine Bilirubin Negative (Negative) 04/29/24 15:57 Urine Urobilinogen 1.0 mg/dL (Negative) 04/29/24 15:57 Ur Leukocyte Esterase 1+ (Negative) A 04/29/24 15:57 Urine RBC 0-2 /hpf (0-2) 04/29/24 15:57 Urine WBC 0-5 /hpf (0-5) 04/29/24 15:57 Ur Squamous Epith Cells 0-5 /hpf (0-5) 04/29/24 15:57 Amorphous Sediment Not Reportable 04/29/24 15:57 Urine Bacteria None seen /hpf (NONE) 04/29/24 15:57 Hyaline Casts 1.21 /lpf 04/29/24 15:57 All radiology interpretation(s) finalized by discharge Discharge Plan Discharge Patient Disposition: Home Clinical Impression: Bilateral pulmonary infiltrates on chest x-ray, At risk for aspiration Dementia Qualifiers: Dementia type: unspecified type Dementia severity: unspecified severity Dementia behavioral or psychological symptom: with agitation Qualified Code(s): F03.911 - Unspecified dementia, unspecified severity, with agitation Condition: Stable Prescriptions: No Action donepezil [Aricept] 10 mg tablet 10 mg PO DAILY memantine 10 mg tablet 10 mg PO BID quetiapine 25 mg tablet 25 mg PO DAILY levothyroxine 137 mcg tablet 137 mcg PO QAM Discharge Orders: Discharge ED (Routine); Ordered 04/29/24 Ordered By: Doc Delong Referrals: Ignacio Robles [Primary Care Provider] - 1-3 days Discharge Diet: Advance as tolerated Discharge Activity: Increase activity as tolerated Patient Instructions: Dementia (ED), Aspiration Precautions (ED) Activity Restrictions/Additional Instructions: Please for the follow-up your primary care doctor in 3 to 5 days increase your p.o. intake of oral fluids please return the interim if any of your symptoms persist or worse then your lab work reveal any obvious concerns for infection or other additional concerning findings. Print Language: Cuban Coding Level of Care Code ED [employer] Superintendent for Stefanie Clemens
--- NOTE | 2024-04-29 14:11 | ECG_ITS ---
[facility]: 2024-[facility]29 Pat Name: Nakia Fung Department: Room: Gender: Female Contracting Support Specialist: : 1935 Requested By: Doc Delong Order Number: [id number] Rainer MD: Soheila Campo M.D. Measurements Intervals Winston Rate: 69 P: 0 NV: 160 QRS: -18 QRSD: 77 T: 29 QT: 386 QTc: 415 Interpretive Statements SINUS RHYTHM WITH SINUS ARRHYTHMIA LOW QRS VOLTAGE IN PRECORDIAL LEADS [QRS DEFLECTION < 1.0 mV IN CHEST LEADS] POSSIBLE ANTERIOR MYOCARDIAL INFARCTION , OF INDETERMINATE AGE [30 ms Q WAVE IN V3/V4, OR R < 0.2 mV IN V4] Compared to ECG 11/25/2023 01:40:42 No significant changes Electronically Signed On 04-30-2024 22:46:22 CDT by Soheila Campo M.D. [email or web address]
[2024-04-29 14:15] VITALS: BP 139/68; O2SAT 94
[2024-04-29 14:30] VITALS: BP 139/68; O2SAT 92
[2024-04-29 15:19] LABS: Eosinophils # 0.6 10^3/uL (0.0-0.8); Hematocrit 38.9 % (36-47); Lymphocytes # 1.7 10^3/uL (0.8-4.8); Lymphocytes % 21.6 %; Mean Corpuscular HGB Conc 30.6 g/dL (30-55); Mean Corpuscular Hemoglobin 28.3 pg (27-33); Mean Corpuscular Volume 92.4 fl (85-98); Monocytes # 0.7 10^3/uL (0.2-0.9); Monocytes % 8.3 %; Neutrophils # 4.88 10^3/uL (1.8-7.7); Neutrophils % 61.7 %; Nucleated Red Blood Cells % 0 %; Platelet Count 203 10^3/cmm (157-399); Red Blood Count 4.21 10^6/uL (3.85-5.65); Red Cell Distribution Width 13.1 % (12.1-15.1); White Blood Count 7.91 10^3/uL (3.29-11.43)
[2024-04-29] MEDS: sodium chloride 0.9% 500 ML IV (15:21)
[2024-04-29 15:35] LABS: INR 0.87 (0.8-1.2)
[2024-04-29 15:36] LABS: Partial Thromboplastin Time 36.2 SECONDS (23.9-36.7)
[2024-04-29 15:49] LABS: Alanine Aminotransferase 9 U/L (0-33); Albumin Level 3.6 g/dL (3.5-5.2); Alkaline Phosphatase 108 U/L (35-105); Aspartate Amino Transferase 12 U/L (0-32); Blood Urea Nitrogen 38 mg/dL (8-23); Calcium 8.6 mg/dL (8.5-10.5); Carbon Dioxide 26 mmol/L (22-29); Chloride 104 mmol/L (98-107); Creatinine Clr Calc Pharmacy 31.4524; Globulin 2.6 g/dL (1.3-4.6); Glucose 127 mg/dL (65-115); NT Pro B Type Natriuretic Pept 1270 pg/mL (0-450); Osmolality Calculated 297 mOsm/kg (285-295); Sodium 138 mmol/L (136-145); Total Bilirubin 0.2 mg/dL (0.15-1.2); Total Protein 6.2 g/dL (6.6-8.7)
[2024-04-29 16:00] VITALS: O2SAT 93
[2024-04-29 16:07] LABS: Bilirubin Urine Negative (Negative); Blood Urine Negative (Negative); Glucose Urine UA Negative (Normal); Ketones Urine Negative (Negative); Leukocyte Esterase Urine 1+ (Negative); Nitrate Urine Negative (Negative); Protein Urine Negative (Negative); Specific Gravity, Urine 1.017 (1.005-1.030); Urine Appearance Clear (CLEAR); Urine Color Yellow (Yellow)
[2024-04-29 16:12] LABS: Add Urine Microscopic? YES; Bacteria Urine None Seen /hpf; Hyaline Casts Urine 1.21 /lpf; RBC Urine 0-2 /hpf (0-2); Squamous Epithelial Cell Urine 0-5 /hpf (0-5); WBC Urine 0-5 /hpf (0-5)
== END 2024-04-29 17:36 | disposition home or self-care (01) ==
PROVIDERS: Emergency Provider Emergency Medicine; PCP Family Medicine
DX: F03.911 Unspecified dementia, unspecified severity, with agitation (principal); R91.8 Other nonspecific abnormal finding of lung field; J44.9 Chronic obstructive pulmonary disease, unspecified
CPT/HCPCS: 36415; 70450; 71045; 80053; 81001; 83880; 85025; 85610; 85730; 86140; 93005; 96360; 96361; 99285; J7040

== ENCOUNTER 2024-07-09 05:00 | Outpatient (RCR) | payer MEDICARE, OTHER, SELFPAY | END 2024-08-04 10:34 | disposition home or self-care (01) | LOC: SOT 05:00 | PROVIDERS: Visit Provider Family Medicine | DX: E11.22 Type 2 diabetes mellitus with diabetic chronic kidney disease (principal) | CPT/HCPCS: 97167 ==

== ENCOUNTER 2024-09-03 13:11 | Emergency (ER) | payer MEDICARE, OTHER, SELFPAY ==
--- OUTSIDE RECORDS SUMMARY | 2023-07-24 16:30 | XMS_ITS ---
Author Organization [facility] [employer] ([id number]) Address [address] [address] Care Team Providers Care Media Assistant Name Role Phone Vitor Pennington Unavailable [phone] ZZ-Migration, Provider Unavailable Unavailab le Allergies Allergen (clinical drug ingredient) Drug/Non Drug Allergy documented on EMR Reaction Allergy Type Onset Date Status ROCEPHIN (uncoded) unknown Allergy A ctive REASON FOR VISIT [facility] To [facility] Conversion Encounter Medications Medication SIG (Take, Route, Frequency, Duration) Notes Start Date End Date Status LORazepam 0.5 MG 1 tab(s) orally 3 times a day Active Atorvastatin Calcium 20 MG 1 tab(s) orally once a day; Duration: 30 day(s) Active Memantine HCl 10 MG 1 tab(s) orally 2 times a day; Duration: 30 day(s) Active Aspirin 81 MG 1 tab(s) orally once a day; Duration: 30 day(s) Active Furosemide 20 MG 1 tab(s) orally once a day; Duration: 30 day(s) Active Propranolol HCl 10 MG 1 tab(s) orally 2 times a day; Duration: 30 day(s) Active SEROquel 25 MG 1 tab(s) orally 3 times a day; Duration: 30 day(s) Active Clopidogrel Bisulfate 75 MG 1 tab(s) orally once a day; Duration: 30 day(s) Active Levothyroxine Sodium 112 MCG 1 tab(s) orally once a day; Duration: 30 day(s) Active Tiotropium Jefferson Monohydrate 18 MCG 1 cap(s) inhaled once a day; Duration: 30 day(s) Active Symbicort 160-4.5 MCG/ACT 2 puff(s) inhaled 2 times a day; Duration: 30 day(s) Active Ipratropium-Albuterol 0.5-2.5 (3) MG/3ML 3 mL by nebulizer 4 times a day; Duration: 30 day(s) Active Donepezil HCl 10 MG 1 tab(s) orally once a day (at bedtime); Duration: 30 day(s) Active Famotidine 40 MG 1 tab(s) orally once a day (at bedtime) Active ALBUTEROL (EQV-PROAIR HFA) 90 MCG/INH 2 PUFF(S) INHALED EVERY 6 HOURS *Please review for potential replacement for e-prescription and drug interaction check* Active Encounters Encounter Location Date Provider Diagnosis [address] [address] 07/24/2023 Provider YOANA-Migration Plan Of Treatment No Information Progress Notes * RAYO NormaDOB:1935 ( 89 yo F)Acc No.[id number]:07/24/2023 Patient: Nakia BERNAL Provider: Lucia saeed Migration :1935 A ge:88 Y S ex:Female Date:07/24/2023 Address:[facility] [address], [place] [address] Subjective: * Chief Complaints: * 1 . Multum To Medispan Conversion Encounter. * Medical History: * Medications: T aking Famotidine 40 MG Tablet 1 tab(s) orally once a day (at bedtime) , Taking ALBUTEROL (EQV-PROAIR HFA) 90 MCG/INH AEROSOL 2 PUFF(S) INHALED EVERY 6 HOURS , Notes to Pharmacist: *Please review for potential replacement for e-prescription and drug interaction check*, Taking Symbicort 160-4.5 MCG/ACT Aerosol 2 puff(s) inhaled 2 times a day , Taking Ipratropium-Albuterol 0.5-2.5 (3) MG/3ML Solution 3 mL by nebulizer 4 times a day , Taking Donepezil HCl 10 MG Tablet 1 tab(s) orally once a day (at bedtime) , Taking SEROquel 25 MG Tablet 1 tab(s) orally 3 times a day , Taking Propranolol HCl 10 MG Tablet 1 tab(s) orally 2 times a day , Taking Levothyroxine Sodium 112 MCG Tablet 1 tab(s) orally once a day , Taking Tiotropium Jefferson Monohydrate 18 MCG Capsule 1 cap(s) inhaled once a day , Taking Clopidogrel Bisulfate 75 MG Tablet 1 tab(s) orally once a day , Taking Memantine HCl 10 MG Tablet 1 tab(s) orally 2 times a day , Taking Aspirin 81 MG Tablet Delayed Release 1 tab(s) orally once a day , Taking Furosemide 20 MG Tablet 1 tab(s) orally once a day , Taking LORazepam 0.5 MG Tablet 1 tab(s) orally 3 times a day , Taking Atorvastatin Calcium 20 MG Tablet 1 tab(s) orally once a day * Allergies: R OCEPHIN: unknown - Allergy. Objective: * Vitals: Assessment: Plan: * Treatment: * Billing Information: * Visit Code: * Procedure Codes: * Electronic signature of Prov serena LEES-Migration on 09/03/2024 at 01:19 PM CDT Sign off status: Pending * Provider: Lucia saeed Migration Date: 0 07/24/2023 Generated for Shant peterson/Rasta/Ada on: 09/03/2024 01:19 PM CDT
[2024-09-03 13:17] VITALS: PULSE 75; RESP 16; TEMP 36.9; O2SAT 91
--- OUTSIDE RECORDS SUMMARY | 2024-09-03 13:18 | XMS_ITS | Encounter Summary ---
Author Organization [facility] Address [address] Attn: Epic Prelude ADT [place] [address] Care Team Providers Care Owner/Photographer Name Role Phone Ignacio Robles MD Primary Care Provider [phone] Encounter Details Date Type Department Care Team (Late st Contact Info) Description 09/03/2024 External Device Data Initial Department [address] ATTN: [place] [address] [facility] Md Lynn Social History Tobacco Use Types Packs/Day Years Used Date Smoking Tobacco: Former Cigarettes 1 5 Smokeless Tobacco: Never Alcohol Use Standard Drinks/Week Comments Not Currently 0 (1 standard drink = 0.6 oz pur e alcohol) Comments No Sex and Gender Information Value Date Recorded Sex Assigned at Not on file Legal Sex Female 2:30 PM CDT Gender Identity Not on file Sexual Orientation Not on file documented as of this encounter Plan of Treatment Upcoming Encounters Date Type Department Care Team (Late st Contact Info) Description 09/19/2024 4:20 PM CDT Office Visit [facility] Family Medicine [place] [address] [phone] Ignacio Robles MD [address] [address] documented as of this encounter Visit Diagnoses Not on filedocumented in this encounter Care Teams Owner/Photographer Relationship Specialty Start Date End Date Ignacio Robles MD [address] [address] PCP - General Family Practice 04/16/23 documented as of this encounter
--- OUTSIDE RECORDS SUMMARY | 2024-09-03 13:18 | XMS_ITS | Encounter Summary ---
Author Organization [facility] Address [address] [place] [address] Care Team Providers Care Ecmo Specialist Name Role Phone Ignacio Robles MD Primary Care Provider [phone] Reason for Visit * Reason Onset Date [facility] 09/03/2024 Encounter Details Date Type Department Care Team (Late st Contact Info) Description 09/03/2024 Nurse Triage [facility] [address] [facility] [place] [phone] Summary-Deanna Mai RN Social History Tobacco Use Types Packs/Day Years [...] on file documented as of this encounter Miscellaneous Notes * Telephone Encounter - Summary-Deanna Mai RN - 09/03/2024 11:38 AM CDT [facility] 365 DOCUMENTATION Service Line: [facility] 365 at 11:38 AM Chief Complaint: Leg pain Patient Statement/HPI: Patient and daughter /Bia on the phone We are thinking we need to go to the Emergency Department Not putting any pressure on left leg No redness or heat noted + swelling Using ice / heat and tylenol with no improvement Has used old pain medication with no change in pain Began on Wednesday AM Denies injury or trauma + wiggling of toes currently , but with pain Pain is at a 10 with ANY movement Assessment : A&Ox4 with NAD noted on phone conversation No home VS available Plan: When discussing with daughter I would discuss with team , she reports they are already en rout to the Emergency Department for eval Wished pt and family well and advised for them to call back with any questions Daughter verbalized understanding Note routed to primary care office pool. Visit was completed by phone unless otherwise noted with video/screen capture within the note. Deanna Moya Summary-ILDA Mai [place] [address] documented in this encounter Plan of Treatment Upcoming Encounters Date Type Department Care Team (Late st Contact Info) Description 09/19/2024 4:20 PM CDT Office Visit [facility] Medicine [place] [address] [phone] Ignacio Robles MD [address] [phone] documented as of this encounter Visit Diagnoses Not on filedocumented in this encounter Care Teams Ecmo Specialist Relationship Specialty Start Date End Date Ignacio Robles MD [address] [phone] PCP - General Family Practice 04/16/23 documented as of this encounter
--- OUTSIDE RECORDS SUMMARY | 2024-09-03 13:19 | XMS_ITS | Encounter Summary ---
Author Organization [facility] Address [address] [place] [address] Care Team Providers Care Solar Photovoltaic Electrician Name Role Phone Ignacio Robles MD Primary Care Provider [phone] Reason for Visit * Reason Onset Date Comments Results 06/29/2024 Encounter Details Date Type Department Care Team (Latest Contact Info) Description 06/29/2024 Results Follow-Up [facility] Medicine [place] 104 [facility] [address] [place] [address] Lizbet Calhoun NP [address] [place] [phone] COMPREHENSIVE METABOLIC PANEL, CBC WITH DIFFERENTIAL Social History Tobacco Use Types Packs/Day Years [...] encounter Miscellaneous Notes * Telephone Encounter - Radha Kathleen RN - 06/29/2024 9:04 AM CDT 06/29/2024 9:04 AM Called and notified patient's daughter of results. Voiced understanding. She states that patient isstill lethargic, urinating on herself while sleeping, and is more confused than normal. Daughter iswondering whatelse we need to do. Radha GONSALES * Telephone Encounter - Radha Kathleen RN - 06/29/2024 9:04 AM CDT ----- Message from Lizbet Calhoun sent at 06/29/2024 7:58 AM CDT ----- Blood count is stable. Kidney function and electrolytes are stable. * Result Encounter Note - Lizbet Calhoun NP - 06/29/2024 7:58 AM CDT Blood count is stable. Kidney function and electrolytes are stable. documented in this encounter Plan of Treatment Upcoming Encounters Date Type Department Care Team (Late st Contact Info) Description 09/19/2024 4:20 PM CDT Office Visit [facility] Medicine [place] [address] [phone] Ignacio Robles MD [address] [phone] documented as of this encounter Visit Diagnoses Not on filedocumented in this encounter Care Teams Solar Photovoltaic Electrician Relationship Specialty Start Date End Date Ignacio Robles MD [address] [phone] PCP - General Family Practice 04/16/23 documented as of this encounter
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
--- OUTSIDE RECORDS SUMMARY | 2024-09-03 13:19 | XMS_ITS | Clinical Summary ---
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 Negative 06/23/2024 6:12 PM CDT [facility] BLOOD UA Negative Negative 06/23/2024 6:12 PM CDT [facility] Urine URINE SPECIMEN OBTAINED BY CLEAN CATCH PROCEDURE / Unknown Collection / Unknown 06/23/2024 6:00 PM CDT 06/23/2024 6:08 PM CDT Gabrielle Romo MD URINE ORDERABLES Final Result [id number] [address] [place] [id number] * XR CHEST PA OR AP 1 VW (06/23/2024 4:47 PM CDT) Anatomical Region Laterality Modality Chest Computed Radiogr aphy 06/23/2024 4:47 PM CDT Impressions 06/23/2024 5:19 PM CDT IMPRESSION: Please see below. Exam: XR CHEST PA OR AP 1 VW Date/Time of Exam: 06/23/2024 4:47 PM REASON FOR EXAM: Pneumonia, Comment: recent PNA, +crackles. DIAGNOSIS: See Reason for Exam. Findings: Comparison is made to the prior exam performed 05/24/2024 There is mild interstitial infiltrate/edema with small bilateral pleural effusions and bibasilar consolidation. The cardiothymic silhouette is stable in appearance. A calcification in the superior mediastinum may represent a calcified lymph node or calcification in the thyroid gland. There is degenerative change in the left shoulder girdle. Milder degenerative changes are seen in the right shoulder girdle and thoracic spine. IMPRESSION: Findings most consistent with CHF exacerbation with small pleural effusions, or or--, and mild interstitial edema. There is some mild bibasilar consolidation and superimposed pneumonia is not entirely excluded. Narrative Procedure Note Gilmer Hanks MD - 06/23/2024 IMPRESSION: Please see below. Exam: XR CHEST PA OR AP 1 VW Date/Time of Exam: 06/23/2024 4:47 PM REASON FOR EXAM: Pneumonia, Comment: recent PNA, +crackles. DIAGNOSIS: See Reason for Exam. Findings: Comparison is made to the prior exam performed 05/24/2024 There is mild interstitial infiltrate/edema with small bilateral pleural effusions and bibasilar consolidation. The cardiothymic silhouette is stable in appearance. A calcification in the superior mediastinum may represent a calcified lymph node or calcification in the thyroid gland. There is degenerative change in the left shoulder girdle. Milder degenerative changes are seen in the right shoulder girdle and thoracic spine. IMPRESSION: Findings most consistent with CHF exacerbation with small pleural effusions, or or--, and mild interstitial edema. There is some mild bibasilar consolidation and superimposed pneumonia is not entirely excluded. Gabrielle Romo MD DIAGNOSTIC IMAGING ORDERABLES Final Result * LIPASE (06/23/2024 4:15 PM CDT) LIPASE 44 13 - 60 U/L 06/23/2024 4:42 PM CDT [facility] Blood Venipuncture / Unknown 06/23/2024 4:15 PM CDT 06/23/2024 4:24 PM CDT Gabrielle Romo MD CHEMISTRY ORDERABLES Final Re sult [facility] CLIA # [id number] [address] [place] [id number] * GIARDIA & CRYPTOSPORIDIUM ANTIGEN (06/22/2024 3:38 PM CDT) Pathologist [facility] CRYPTOSPORIDIUM AG SEE NOTE [facility] Comment: CRYPTOSPORIDIUM ANTIGEN, EIA Micro Number: [id number] Test Status: Final Specimen Source: Stool Specimen Quality: Adequate Cryptosporidium: Not Detected Reference Range: Not Detected NOTE: Due to intermittent shedding, one negative sample does not necessarily rule out the presence of a parasitic infection. GIARDIA AG SEE NOTE [facility] Comment: GIARDIA AG, EIA, STOOL Micro Number: [id number] Test Status: Final Specimen Source: Stool Specimen Quality: Adequate Giardia Result 1: Not Detected Reference Range: Not Detected NOTE: Due to intermittent shedding, one negative sample does not necessarily rule out the presence of a parasitic infection. Test Performed at: [facility] [address] [place] [address] Jenise Mir Stool STOOL SPECIMEN / Unknown 06/22/2024 3:38 PM CDT 06/23/2024 3:27 AM CDT Ignacio Robles MD MICROBIOLOGY - GENERAL OR DERABLES Final Result Performing Organization Address City/[facility] Phone Number [facility] [phone] [facility] [address] [place] [address] * (ABNORMAL) T3 (06/22/2024 3:38 PM CDT) Pathologist [facility] T3 66(L) 76 - 181 ng/dL [facility] Comment: Test Performed at: [facility] [address] [address] Jenise Mir MD Blood 06/22/2024 3:38 PM CDT 06/24/2024 3:21 AM CDT Ignacio Robles MD CHEMISTRY ORDERABLES Mary l Result [facility] [phone] [facility] [address] * (ABNORMAL) TSH (06/22/2024 3:38 PM CDT) [facility] TSH 0.08(L) 0.40 - 4.50 mIU/L [facility] Comment: Test Performed at: [facility] [address] Jenise Mir MD Blood 06/22/2024 3:38 PM CDT 06/24/2024 3:21 AM CDT Ignacio Robles MD CHEMISTRY ORDERABLES Mary l Result Performing Organization Address City/[facility]/ZIP Co de Phone Number [facility] [phone] [facility] [address] [place] [address] * T4 FREE (06/22/2024 3:38 PM CDT) [facility] T4 FREE 1.5 0.8 - 1.8 ng/dL [facility] Comment: Test Performed at: [facility] [place] [address] Jenise Mir MD Blood 06/22/2024 3:38 PM CDT 06/24/2024 3:21 AM CDT Ignacio Robles MD CHEMISTRY ORDERABLES Mary l Result Performing Organization Address City/[facility]/ZIP Co de Phone Number [facility] [phone] [facility] [address] * REFERENCE LAB PROCESSING FEE (06/15/2024 12:47 PM CDT) Only the most recent of2 resultswithin the time period is included. [facility] REFERENCE LAB SENDOUT Sent to Ref Lab 06/15/2024 2:00 PM CDT [facility] Other, specify BLOOD SPECIMEN / Unknown Collection / Unknown 06/15/2024 12:47 PM CDT 06/15/2024 12:47 PM CDT us Celina Nadeenjosh Billings NP CHEMISTRY ORDERABLES Final Result [facility] CLIA # [id number] [address] [place] [id number] * US RENAL AND BLADDER (06/08/2024 1:41 PM CDT) Anatomical Region Laterality Modality Abdomen Ultrasound 06/08/2024 1:41 PM CDT Impressions 06/08/2024 5:18 PM CDT IMPRESSION: Please see below. Exam: US RENAL AND BLADDER Date/Time of Exam: 06/08/2024 1:41 PM Reason For Exam: See Diagnosis. Diagnosis: Lower urinary tract infectious disease; Oliguria; Dribbling urine; Other retention of urine. Comparison: Renal and bladder ultrasound 11/08/2018. Limited abdominal ultrasound 08/05/2023. CT abdomen pelvis 07/22/2023. Findings: Exam quality: Technical limitations secondary to overlying bowel gas. RIGHT KIDNEY: : The right kidney measures 10.3 cm in length. Negative for hydroureteronephrosis. A 2.4 x 1.7 x 2.7 cm anechoic lesion lower pole right kidney.. The renal cortical thickness and echogenicity are within normal limits. There are no additional focal renal lesions. LEFT KIDNEY: The left kidney is not well visualized secondary to bowel gas. The left kidney measures approximately 8.5 cm in length. Negative for hydroureteronephrosis.. A 2.1 x 2.2 x 2.2 cm anechoic lesion of the interpole segment is present. The renal cortical thickness and echogenicity are within normal limits. There are no additional focal renal lesions. BLADDER: Prevoid volume 209.4 mL. Post void volume 64.1 mL. Impression: 1. Technical limitations secondary to overlying bowel gas with suboptimal visualization of the left kidney. 2. Bilateral renal cortical cysts. 3. Small post void residual. Narrative Procedure Note OnYash handy MD - 06/08/2024 IMPRESSION: Please see below. Exam: US RENAL AND BLADDER Date/Time of Exam: 06/08/2024 1:41 PM Reason For Exam: See Diagnosis. Diagnosis: Lower urinary tract infectious disease; Oliguria; Dribbling urine; Other retention of urine. Comparison: Renal and bladder ultrasound 11/08/2018. Limited abdominal ultrasound 08/05/2023. CT abdomen pelvis 07/22/2023. Findings: Exam quality: Technical limitations secondary to overlying bowel gas. RIGHT KIDNEY: : The right kidney measures 10.3 cm in length. Negative for hydroureteronephrosis. A 2.4 x 1.7 x 2.7 cm anechoic lesion lower pole right kidney.. The renal cortical thickness and echogenicity are within normal limits. There are no additional focal renal lesions. LEFT KIDNEY: The left kidney is not well visualized secondary to bowel gas. The left kidney measures approximately 8.5 cm in length. Negative for hydroureteronephrosis.. A 2.1 x 2.2 x 2.2 cm anechoic lesion of the interpole segment is present. The renal cortical thickness and echogenicity are within normal limits. There are no additional focal renal lesions. BLADDER: Prevoid volume 209.4 mL. Post void volume 64.1 mL. Impression: 1. Technical limitations secondary to overlying bowel gas with suboptimal visualization of the left kidney. 2. Bilateral renal cortical cysts. 3. Small post void residual. Celina Billings CLAM BED WORKER US ORDERABLES Mary l Result * MICROALBUMIN/CREATININE RATIO, RANDOM UR (05/18/2024 11:29 AM CDT) Creatinine, Urine 48 20 - 275 mg/dL [facility] MICROALBUMIN, URINE 0.9 See Note: mg/dL [facility] Comment: Reference Range: Reference Range Not established MICROALBUMIN/CREAT RATIO, UR 19 <30 mg/g creat [facility] Comment: The ADA defines abnormalities in albumin excretion as follows: Albuminuria Category Result (mg/g creatinine) Normal to Mildly increased <30 Moderately increased 30-299 Severely increased > OR = 300 The ADA recommends that at least two of three specimens collected within a 3-6 month period be abnormal before considering a patient to be within a diagnostic category. Test Performed at: [facility] [address] [place] [address] [address] Jenise Mir MD Urine URINE SPECIMEN OBTAINED BY CLEAN CATCH PROCEDURE / Unknown 05/18/2024 11:29 AM CDT 05/19/2024 4:06 AM CDT us Amrita Gaxiola [facility] URINE ORDERABLES Final Resu lt [facility] [phone] [facility] [address] [place] [address] * HEMOGLOBIN A1C (05/18/2024 11:29 AM CDT) HEMOGLOBIN A1C 5.3 <5.7 % of total Hgb [facility] Comment: For the purpose of screening for the presence of diabetes: <5.7% Consistent with the absence of diabetes 5.7-6.4% Consistent with increased risk for diabetes (prediabetes) > or =6.5% Consistent with diabetes This assay result is consistent with a decreased risk of diabetes. Currently, no consensus exists regarding use of hemoglobin A1c for diagnosis of diabetes in children. According to [place] Diabetes Association (ADA) guidelines, hemoglobin A1c <7.0% represents optimal control in non- diabetic patients. Different metrics may apply to specific patient populations. Standards of Medical Care in Diabetes(ADA). ESTIMATED AVERAGE GLUCOSE (MG/DL) 105 mg/dL [facility] ESTIMATED AVERAGE GLUCOSE (MMOL/L) 5.8 mmol/L [facility] Comment: Test Performed at: [facility] [address] [place], [place] [address] Jenise Mir MD Blood 05/18/2024 11:2 9 AM CDT 05/19/2024 3:22 AM CDT us Amrita TAY CHEMISTRY ORDERABLES Final Result [facility] [phone] [facility] [address] [facility] [place] [address] [address] * (ABNORMAL) LIPID PANEL (02/24/2023 12:19 PM MAINTENANCE AND ENGINEERING MANAGER) CHOLESTEROL 115 <200 mg/dL [facility] HDL 34(L) > OR = 50 mg/dL [facility] TRIGLYCERIDE 117 <150 mg/dL [facility] LDL CALCULATED 61 mg/dL (calc) [facility] Comment: Reference range: <100 Desirable range <100 mg/dL for primary prevention; <70 mg/dL for patients with CHD or diabetic patients with > or = 2 CHD risk factors. LDL-C is now calculated using the Reji-Hamilton calculation, which is a validated novel method providing better accuracy than the Friedewald equation in the estimation of LDL-C. Reji SS et al. BRANDIE. 2013;310(19): 6942-5146 (http://education.Drive Power/faq/UQF134) CHOL/HDL RATIO 3.4 <5.0 (calc) [facility] TOTAL NON-HDL CHOL(LDL+VLDL) 81 <130 mg/dL (calc) [facility] Comment: For patients with diabetes plus 1 major ASCVD risk factor, treating to a non-HDL-C goal of <100 mg/dL (LDL-C of <70 mg/dL) is considered a therapeutic option. Test Performed at: [facility] [address] [facility] [place] [address] Jenise Mir MD Blood 02/24/2023 12:1 9 PM MAINTENANCE AND ENGINEERING MANAGER 02/25/2023 3:21 AM MAINTENANCE AND ENGINEERING MANAGER Ayla TAY CHEMISTRY ORDERABLES Final Resul t [facility] [phone] [facility] [address] [facility] [place] [address] from Last 3 Months or Most Recently Relevant to Health Maintenance Insurance FOR LIFE MEDICARE PART A AND B FOR LIFE Advance Directives For more information, please contact: [phone] * NO CPR (In Event of Cardiopulmonary Arrest) (Latest Code Status on File) Date Activated Date Inactivated Comments 11/09/2018 3:09 PM 11/24/2018 5:35 PM Question Answer Comments Mechanical Ventilation (for respiratory distress) - Invasive (i.e. intubation): No Mechanical Ventilation (for respiratory distress) - Non-Invasive (i.e. BiPAP, CPAP): No Cardioversion - (Allow prior to Cardiopulmonary Arrest): No Vasopressors - (Allow prior to Cardiopulmonary A rrest): No Inotropic Agents - (Allow prior to Cardiopulmona ry Arrest): No External Pacing - (Allow prior to Cardiopulmonar y Arrest): No Invasive Monitoring - (Allow prior to Cardiopulm onary Arrest): No * Full Code Date Activated Date Inactivated Comments 11/04/2018 10:33 PM 11/09/2018 3:09 PM Care Teams Sales Development Associate Relationship Specialty Start Date End Date Ignacio Robles MD [address] [phone] PCP - General Family Practice 04/16/23
--- OUTSIDE RECORDS SUMMARY | 2024-09-03 13:19 | XMS_ITS | Encounter Summary ---
Author Organization [place] [facility] Address [address] [address] Phone Care Team Providers Care Credit Report Checker Name Role Phone Ignacio Robles MD Primary Care Provider [phone] Encounter Details Date Type Department Care Team (Late st Contact Info) Description 03/31/2023 Orders Only [place] [facility] [facility], [facility] [address] [address] Chronic kidney disease stage 3B (HCC) Social History Tobacco Use Types Packs/Day Years Used Date Smoking Tobacco: Never Assessed Comments Unknown Sex and Gender Information Value Date Recorded Sex Assigned at Not on file Legal Sex Female 9:58 AM EST Gender Identity Not on file Sexual Orientation Not on file documented as of this encounter Plan of Treatment Upcoming Encounters Date Type Department Care Team (Late st Contact Info) Description 09/21/2024 Orders Only [facility], [address] [address] Celina Billings NP [address] [address] Stage 3b chronic kidney disease (HCC) 09/26/2024 2:00 PM CDT Office Visit [place] [facility] [address] [address] Celina Billings NP [address] [address] documented as of this encounter Visit Diagnoses Diagnosis Chronic kidney disease stage 3B (HCC) Stage 3b chronic kidney disease (HCC) documented in this encounter Care Teams Credit Report Checker Relationship Specialty Start Date End Date Ignacio Robles MD [address] [address] PCP - General Family Medicine 05/22/24 documented as of this encounter
--- OUTSIDE RECORDS SUMMARY | 2024-09-03 13:19 | XMS_ITS | Encounter Summary ---
Author Organization [facility] Address [address] [place] [address] Care Team Providers Care Hair Spinning Machine Operator Name Role Phone Ignacio Robles MD Primary Care Provider [phone] Encounter Details Date Type Department Care Team (Late Contact Info) Description 05/09/2024 Lab Requisition [facility] [place] [address] [address] Amrita Gaxiola FNP [address] [address] Hyperkalemia Social History Tobacco Use Types Packs/Day Years [...] Description 09/19/2024 4:20 PM CDT Office Visit [facility] Medicine [place] [address] [address] Ignacio Robles MD [address] [address] documented as of this encounter Procedures Procedure Name Priority Date/Time Associated Diagnosis Comments BASIC METABOLIC PANEL Stat 05/09/2024 2:02 PM CDT Hyperkalemia documented in this encounter Results * (ABNORMAL) BASIC METABOLIC PANEL (05/09/2024 2:02 PM CDT) SODIUM 142 136 - 145 mmol/L 05/09/2024 3:08 PM CDT [facility] POTASSIUM 5.0 3.5 - 5.1 mmol/L 05/09/2024 3:08 PM T [facility] CHLORIDE 102 98 - 107 mmol/L 05/09/2024 3:08 PM CDT [facility] CO2 29 22 - 29 mmol/L 05/09/2024 3:08 PM [facility] CALCIUM 9.3 8.8 - 10.2 mg/dL 05/09/2024 3:08 PM [facility] BUN 40(H) 8 - 23 mg/dL 05/09/2024 3:08 PM [facility] CREATININE 1.42(H) 0.51 - 0.95 mg/dL 05/09/2024 3:08 PM [facility] Comment:The GFR result is no t clinically significant on patients <18 or >70 years of age. GLUCOSE 107(H) 74 - 99 mg/dL 05/09/2024 3:08 PM [facility] GFR 36 mL/min/1.7 3 sq meter 05/09/2024 3:08 PM [facility] Comment:eGFR calculated with 2020 CKD-EPI equation. Vegetarian diet, extremely high or low muscle mass, and may affect results. Cystatin C with Glomerular Filtration Rate is a suitable alternative for these patients. ANION GAP 11 5 - 20 mmol/L 05/09/2024 3:08 PM [facility] Blood 05/09/2024 2:02 PM CDT 05/09/2024 2:52 PM CDT us Amrita Gaxiola WAITER/WAITRESS FORMAL CHEMISTRY ORDERABLES Final Result [facility] CLIA # [id number] [address] [address] documented in this encounter Visit Diagnoses Diagnosis Hyperkalemia Hyperpotassemia documented in this encounter Care Teams Hair Spinning Machine Operator Relationship Specialty Start Date End Date Ignacio Robles MD [address] [phone] PCP - General Family Practice 04/16/23 documented as of this encounter
--- OUTSIDE RECORDS SUMMARY | 2024-09-03 13:19 | XMS_ITS | Clinical Summary ---
Author Organization [facility] Facility Address [address] [place] [address] Care Team Providers Care [employer] Officer Name Role Phone Ignacio Robles MD Primary Care Provider [phone] Allergies Active Allergy Reactions Criticality Noted Date Comments Ceftriaxone Hives High 11/08/2018 Tomato Rash Low 11/14/2018 Medications donepezil (ARICEPT) 10 MG tablet TAKE 1 TABLET BY MOUTH ONCE EVERY NIGHT AT BEDTIME Active memantine (NAMENDA) 10 MG tablet Take 10 mg by mouth in the morning and 10 mg in the evening. Active nystatin (MYCOSTATIN) cream Apply topically twice a day 4 Active QUEtiapine (SEROquel) 25 MG tablet TAKE 1 TABLET BY MOUTH ONCE EVERY NIGHT AT BEDTIME Active omeprazole (PriLOSEC) [address] capsule Take 20 mg by mouth 1 (one) time each day 4 Active levothyroxine (SYNTHROID, LEVOTHROID) 150 MCG tablet Take 137 mcg by mouth 1 (one) time each day 4 Active UNABLE TO FIND Med Name: Cayenne Pepper L-Thionate Tart Burton Vitamin C 1000 mg One daily Milk Thistle Lirafiq M Active Umeclidinium [place] (Incruse Ellipta) 62.5 MCG/ACT aerosol powder Inhale Active furosemide (LASIX) 20 MG tabletIndicatio ns:Chronic diastolic congestive heart failure (HCC) Take 1 tablet (20 mg total) by mouth continuously if needed (Swelling) 5 06/10/19 26 Active Active Problems No known active problems Encounters Date Type Department Care Team Description 07/12/2024 Telephone [facility] [address] [place] [address] Ally Irene MA 06/23/2024 Telephone [facility] [address] [place] [address] Vida Ybarra MD 06/16/2024 Results Follow-Up [facility] [address] [place] [address] Camasse, Colleen 06/15/2024 Telephone [facility] [address] [place] [address] Vida Ybarra MD 06/15/2024 Telephone [facility] [address] [place] [address] Camasse, Colleen 06/15/2024 Orders Only [facility] [address] [place] [address] Camasse, Colleen Stage 3b chronic kidney disease (HCC) 06/09/2024 Orders Only [facility] [address] [place] [address] Celina Billings NP Chronic diastolic congestive heart failure (HCC) (Primary Dx) 06/09/2024 Documentation Only [facility] [address] [place] [address] Vida Ybarra MD from Last 3 Months Family History Medical History Relation Comments No Known Problems Father No Known Problems Mother Relation Status Comments Father Mother Social History Tobacco Use Types Packs/Day Years Used Date Smoking Tobacco: Former Cigarettes Passive Smoke Exposure: Past Smokeless Tobacco: Never Tobacco Cessation:Counseling Given: Not Answered Alcohol Use Standard Drinks/Week Comments Never 0 (1 standard drink = 0.6 oz pur e alcohol) Comments No Sex and Gender Information Value Date Recorded Sex Assigned at Not on file Legal Sex Female 9:58 AM EST Gender Identity Not on file Sexual Orientation Not on file Last Filed Vital Signs Vital Sign Reading Time Taken Comments Blood Pressure 106/82 05/22/2024 2:03 PM CDT Pulse 76 05/22/2024 2:03 PM CDT Temperature - - Respiratory Rate - - Oxygen Saturation 98% 01/12/2024 2:42 PM FOLLOW UP CLERK Inhaled Oxygen Concentration - - Weight 90.9 kg (200 lb 6.4 oz) 05/22/2024 2:03 P M CDT Height 142.2 cm (4' 8 ) 05/22/2024 2:03 PM CDT Body Mass Index 44.93 05/22/2024 2:03 PM CDT Plan of Treatment Upcoming Encounters Date Type Department Care Team (Late st Contact Info) Description 09/21/2024 Orders Only [facility], [address] [address] Celina Billings NP [address] [facility] [address] [address] Stage 3b chronic kidney disease (HCC) 09/26/2024 2:00 PM CDT Office Visit [facility] [place] [address] Celina Billings NP [address] [facility] [address] [address] Health Maintenance Due Date Last Done Comments Pneumococcal Vaccine: 50+ Ye ars (2 of 2 - PCV) 11/03/2001 11/03/2000 Diabetes: Hemoglobin A1C 04/02/2023 Diabetes: Ophthalmology Exam 04/02/2023 Diabetes: Pedal Pulse Checked 04/02/2023 Diabetes: Sensory Foot Exam 04/02/2023 Diabetes: Visual Foot Exam 04/02/2023 Influenza Vaccine (#1) 2024 11/20/2018 Hepatitis B Vaccine Aged Out No longe r eligible based on patient's age to complete this topic Procedures Procedure Name Priority Date/Time Associated Diagnosis Comments RENAL FUNCTION PANEL Routine 06/15/2024 11:47 AM CDT Stage 3b chronic kidney disease (HCC) RENAL FUNCTION PANEL Routine 06/08/2024 10:40 AM CDT from Last 3 Months Results * (ABNORMAL) Renal function panel (06/15/2024 11:47 AM CDT) Only the most recent of2 resultswithin the time period is included. Glucose 244(H) 65 - 99 mg/dL [facility] Comment: Fasting reference interval For someone without known diabetes, a glucose value >125 mg/dL indicates that they may have diabetes and this should be confirmed with a follow-up test. BUN 55(H) 7 - 25 mg/dL [facility] Creatinine 1.61(H) 0.60 - 0.95 mg/dL [facility] eGFR CKD-EPI CR 2020 31(L) > OR = 60 mL/min/1.7 3m2 [facility] BUN/Creatinine Ratio 34(H) 6 - 22 (calc) [facility] Sodium 139 135 - 146 mmol/L [facility] Potassium 4.2 3.5 - 5.3 mmol/L [facility] Chloride 99 98 - 110 mmol/L [facility] Bicarbonate (CO2) 29 20 - 32 mmol/L [facility] Calcium 8.8 8.6 - 10.4 mg/dL [facility] Phosphorus 3.9 2.1 - 4.3 mg/dL [facility] Albumin 3.4(L) 3.6 - 5.1 g/dL [facility] Blood specimen (specimen) Venous blood / Unknown 06/15/2024 11:47 AM CDT 06/16/2024 3:15 AM CDT Narrative Resulting Agency Comment Performing Organization Information: Site ID: [place] Name: [email or web address] Address: [address] [address] Director: Jenise Mir MD Celina Billings NP LAB BLOOD ORDERABLES Mary l Result [facility] [address] [place] [address] [address] from Last 3 Months Insurance [facility] Medicare Care Teams State [employer] Officer Relationship Specialty Start Date End Date Ignacio Robles MD [address] [phone] PCP - General Family Medicine 05/22/24
--- NOTE | 2024-09-03 15:15 | USR_ITS ---
PROCEDURE INFORMATION: Exam: US Duplex Left Lower Extremity Arteries Or Arterial Bypass Grafts Exam date and time: 09/03/2024 3:48 PM Age: 89 years old Clinical indication: Pain; Leg, upper and leg, lower; Left; Additional info: Leg pain TECHNIQUE: Imaging protocol: Left Real-time duplex scan of the arteries or arterial bypass grafts of the left lower extremity with 2-D fonseca scale, color Doppler flow and spectral waveform analysis. Images documented and saved. COMPARISON: US CV ankle brachial index [id number] 06/23/2023 1:25 PM FINDINGS: Left common femoral artery: No occlusion or significant stenosis. Normal waveform. Peak systolic velocity 123 cm/sec. Left superficial femoral artery: No occlusion or significant stenosis. Normal waveform. Peak systolic velocity 93-124 cm/sec. Left popliteal artery: No occlusion or significant stenosis. Normal waveform. Peak systolic velocity 63 cm/sec. Left calf/foot arteries: No occlusion or significant stenosis in the visualized arteries. Normal waveforms. Dorsalis pedis artery is patent. Other findings: JOSE unable to be calculated as patient could not tolerate blood pressure cuff on the lower extremity. US/[place] [id number] IMPRESSION: No stenosis or occlusion.
--- NOTE | 2024-09-03 15:15 | XRR_ITS ---
PROCEDURE INFORMATION: Exam: XR Left Hip Exam date and time: 09/03/2024 3:17 PM Age: 89 years old Clinical indication: Hip pain; Left hip TECHNIQUE: Imaging protocol: Radiologic exam of the left hip. Views: 2 or 3 views hip with pelvis when performed. COMPARISON: No relevant prior studies available. FINDINGS: Bones/joints: No acute fracture or dislocation. Soft tissues: Unremarkable. Vasculature: Vascular calcifications. XR/XR hip LT 2-3V wo/w pel* [id number] IMPRESSION: No acute osseous findings.
--- NOTE | 2024-09-03 15:17 | W.ED.EXTPRO ---
HPI - Extremity Problem General: Chief complaint: Extremity Injury, Lower Stated complaint: L hip, leg, and foot pain Time Seen by Provider: 09/03/24 15:10 Source: patient Mode of arrival: ambulatory Limitations: no limitations History of Present Illness: 89-year-old female who family states they are doing some leg exercises with her 3 days ago she states that since then she been having increasing left hip pain states pain is in her left hip radiates down her leg hurts much worse with movement and when she tries to ambulate denies any specific injuries denies any bowel or bladder incontinence Associated symptoms: Deny chest pain, fever(s) or rash Related Data Home Medications ?Medication ?Instructions ?Recorded ?Confirmed donepezil 10 mg tablet (Aricept) 10 mg PO DAILY 06/03/23 09/03/24 memantine 10 mg tablet 10 mg PO BID 06/03/23 09/03/24 levothyroxine 137 mcg tablet 137 mcg PO QAM 04/29/24 09/03/24 furosemide 20 mg tablet 20 mg PO DAILY PRN leg swelling 09/03/24 09/03/24 nystatin 100,000 unit/gram topical 1 applic topical BID 09/03/24 09/03/24 cream nystatin 100,000 unit/gram topical 1 applic topical BID 09/03/24 09/03/24 powder quetiapine 50 mg tablet 50 mg PO BEDTIME 09/03/24 09/03/24 spironolactone 25 mg tablet 12.5 mg PO DAILY 09/03/24 09/03/24 umeclidinium 62.5 mcg/actuation 1 inh inhalation DAILY PRN 09/03/24 09/03/24 blister powder for inhalation Shortness Of Breath (Incruse Ellipta) ursodiol 300 mg capsule 300 mg PO BID 09/03/24 09/03/24 Previous Rx's ?Medication ?Instructions ?Recorded hydrocodone 5 mg-acetaminophen 325 1 tab PO Q6H PRN pain #14 tabs 09/03/24 mg tablet Allergies Allergy/AdvReac Type Severity Reaction Status Date / Time tomato Allergy Unknown Unknown Verified 11/25/23 01:44 ceftriaxone Allergy ALGY-Hives Verified 11/25/23 01:44 Review of Systems Const: Denies: fever(s), chills, body aches or change in appetite ENMT: Denies: throat pain or dental pain Card: Denies: chest pain Resp: Denies: dyspnea GI: Denies: abdominal pain, nausea, vomiting or diarrhea Musc: Reports: extremity pain; Denies: neck pain or back pain Skin/Breast: Denies: rash Neuro: Denies: headache(s) PFSH ED PFSH: Medical History Cognitive dysfunction Sleep apnea COPD (chronic obstructive pulmonary disease) Physical Exam Const: COMMON NORMALS: no acute distress, patient oriented x3 and healthy appearing HENMT: COMMON NORMALS: normocephalic and atraumatic HEAD & SCALP: normocephalic and atraumatic Eye: COMMON NORMALS: conjunctivae normal CONJUNCTIVA: Yes conjunctivae normal Neck/C-Spine: COMMON NORMALS: full ROM and supple Chest: COMMONS NORMALS: normal inspection of the chest Resp: COMMON NORMALS: normal respiratory effort Cardio: COMMON NORMALS: regular rate, regular rhythm and No murmurs present (Cardio) RATE: regular rate RHYTHM: regular rhythm Extremity: COMMON NORMALS: normal to inspection and full ROM NARRATIVE EXTREMITY EXAM: Tenderness noted left hip does have some pain with range of motion distal sensation intact Neuro: COMMON NORMALS: patient oriented x3, moves all extremities and no focal motor deficits Psych: COMMON NORMALS: mental status grossly normal, Normal thought process present and cooperative THOUGHT PROCESS: Normal thought process present Skin: COMMON NORMALS: no rashes or lesions noted and no wounds GENERAL SKIN EXAM: no rashes or lesions noted Course Vital Signs: Vital signs: Vital Signs Temperature 98.4 F 09/03/24 13:17 Pulse Rate 75 09/03/24 13:17 Respiratory Rate 16 09/03/24 13:17 Pulse Oximetry 91 09/03/24 13:17 Oxygen Delivery Me thod Room Air 09/03/24 13:17 MDM - Extremity (Nontraumatic) Medical Decision Making Patient presents here with hip pain is likely muscular in nature x-ray ultrasound here both negative no signs of arterial occlusion patient stable for discharge we will place her on pain meds she is follow-up with PCP return if worsening. Medical Records I reviewed the patient's medical records. All radiology interpretation(s) finalized by discharge Discharge Plan Discharge Patient Disposition: Home Clinical Impression: Left hip pain Condition: Stable Prescriptions: New hydrocodone-acetaminophen 5-325 mg tablet 1 tab PO Q6H PRN (Reason: pain) Qty: 14 0RF No Action donepezil [Aricept] 10 mg tablet 10 mg PO DAILY memantine 10 mg tablet 10 mg PO BID levothyroxine 137 mcg tablet 137 mcg PO QAM quetiapine 50 mg tablet 50 mg PO BEDTIME spironolactone 25 mg tablet 12.5 mg PO DAILY nystatin 100,000 unit/gram cream 1 applic TOPICAL BID ursodiol 300 mg capsule 300 mg PO BID furosemide 20 mg tablet 20 mg PO DAILY PRN (Reason: leg swelling) nystatin 100,000 unit/gram powder 1 applic TOPICAL BID Incruse Ellipta 62.5 mcg/actuation blister with device 1 inh INHALATION DAILY PRN (Reason: Shortness Of Breath) Discharge Orders: Discharge ED (Routine); Ordered 09/03/24 Ordered By: Stephan Pham Referrals: Ignacio Robles [Primary Care Provider, Family Practice] - 4-7 days Discharge Diet: Advance as tolerated Discharge Activity: Resume usual activity Patient Instructions: Hip Pain (ED), Opioid Safety Print Language: Ethiopian Coding Level of Care Code ED Retail Sales Teammate for Stefanie Clemens
[2024-09-03 16:36] VITALS: RESP 17; O2SAT 91
[2024-09-03] MEDS: morphine 4 mg/mL SDV 1 mL IM (16:36)
[2024-09-03] MEDS: HYDROcodone-acetaminophen 5-325 mg Tablet 2 TAB PO (16:38)
[2024-09-03 17:01] VITALS: BP 151/54; PULSE 76; O2SAT 93
== END 2024-09-03 17:03 | disposition home or self-care (01) ==
PROVIDERS: Emergency Provider Emergency Medicine; PCP Family Medicine
DX: M25.552 Pain in left hip (principal); J44.9 Chronic obstructive pulmonary disease, unspecified
CPT/HCPCS: 73502; 93926; 96372; 99284; J1100; J2270; J9999